=== PATIENT | female | born 1955 | race Caucasian/White ===

== ENCOUNTER 2016-09-17 23:01 | Inpatient (IN) ==
--- NOTE | 2016-09-18 02:09 | Emergency Department Note ---
Disposition Clinical Impression: Fracture of right hip Qualifiers: Encounter type: initial encounter Fracture type: closed Qualified Code(s): S72.001A - Fracture of unspecified part of neck of right femur, initial encounter for closed fracture Disposition: Admitted As Inpatient Condition: Fair Time of Disposition: 03:12 Fall HPI - General Chief Complaint: ED Fall Stated Complaint: Fall, R Leg/Arm Pain Time Seen by Provider: 09/18/16 01:28 Source: patient, family Mode of arrival: wheelchair Limitations: no limitations Nursing Notes Reviewed: Yes Vital Signs Reviewed: Yes - History of Present Illness HPI Narrative: 61-year-old female presents for evaluation of right elbow, and right lower extremity pain status post fall 2 days ago. The patient states that she slipped on a wet rock and landed on her right side. She complains of worsening pain ever since. She states she is unable to bear weight on the right lower extremity. She has taken her regularly prescribed oxycodone at home with only modest relief of symptoms. Pt Subjective Complaint: fall Onset (ago): day(s) (2 days ago) Fall From: standing Fall Witnessed: yes Place Fall Occurred: other (Outdoors) Loss of Consciousness: none Prolonged Down Time?: no Symptoms Prior to Fall: none Context: tripped/slipped Location of injury - extremities: Right: elbow, thigh, knee, ankle, foot Severity: severe Severity scale (1-10): 8 Associated symptoms (after fall): Reports: denies - Related Data Allergies Allergy/AdvReac Type Severity Reaction Status Date / Time morphine Allergy Hives Verified 09/18/16 01:47 Penicillins Allergy Swelling Verified 09/18/16 01:47 of Lip/Tongue/Throat All systems ED: reviewed and negative except as stated. Constitutional: Denies: fever, chills, weakness, weight change Eyes: Denies: eye pain, eye discharge, vision change ENT ED: Denies: ear pain, throat pain, dental pain, hearing loss, epistaxis, congestion, dysphagia Cardiovascular: Denies: chest pain, palpitations, dyspnea on exertion, edema, syncope Respiratory: Denies: cough, dyspnea, wheezes, hemoptysis, stridor Gastrointestinal: Denies: abdominal pain, nausea, vomiting, diarrhea, constipation, hematemesis, melena, hematochezia Genitourinary: Denies: dysuria, frequency, hematuria, discharge Musculoskeletal: Reports: as per HPI, arthralgia (Right elbow, right lower extremity pain). Denies: back pain, neck pain, myalgia Integumentary: Denies: rash, abrasion, lesions Neurological: Denies: headache, weakness, numbness, paresthesias, confusion, abnormal gait, vertigo Psychiatric: Denies: anxiety, depression, suicidal thoughts, homicidal thoughts , auditory hallucinations, visual hallucinations Endocrine: Denies: fatigue Hematological/Lymphatic: Denies: easy bleeding, easy bruising Allergic/Immunologic: Denies: facial swelling, urticaria Fall PMH - Past Medical History Medical history: Reports: COPD, hypertension Psychiatric history: Reports: anxiety, depression - Social History Smoking Status: Never smoker Alcohol use: Reports: none Drug use: Reports: none Physical Exam - General Limitations: no limitations General appearance: alert, in no apparent distress - Head Head exam: atraumatic, normocephalic, normal inspection - Eye Eye exam: Present: normal appearance, PERRL, EOMI. Absent: nystagmus - ENT ENT exam: mucous membranes moist - Neck Neck exam: Present: normal inspection, full ROM, trachea midline - Chest Chest inspection: Present: normal inspection, symmetric chest wall rise - Respiratory Respiratory exam: Present: normal lung sounds bilaterally. Absent: respiratory distress, wheezes, stridor, accessory muscle use, prolonged expiratory phase - Cardiovascular Cardiovascular exam: Present: regular rate, normal rhythm, normal heart sounds - Abdominal Exam Abdominal exam: Present: soft, Non-Tender, normal bowel sounds. Absent: tenderness, distention, guarding, rebound, rigidity - Expanded Upper Extremity Exam Shoulder exam: Present: normal inspection, full ROM Arm exam: Present: normal inspection, full ROM Elbow exam: Present: tenderness (Right elbow), abrasion (Right elbow). Absent: ecchymosis, crepitus, erythema, pain w/ pronation/supination, tenderness over radial head Forearm/Wrist exam: Present: normal inspection, full ROM Hand exam: Present: normal inspection, full ROM Neuromotor exam: Normal: wrist extension, thumb opposition, fingers 2-5 abduction Neurosensory exam: Normal: radial nerve, ulnar nerve, 2-point discrimination Hand tendon exam: Normal: flexor digitorum profundus (location), extensor tendon (location) Vascular exam: Normal: capillary refill, radial pulse, ulnar pulse - Expanded Lower Extremity Exam Hip/Pelvis exam: Present: normal inspection, full ROM Upper leg exam: Present: tenderness (Right thigh). Absent: abrasion, ecchymosis , deformity, erythema Knee exam: Present: tenderness (Knee tenderness to palpation diffusely), pain with valgus, pain with varus, knee extension intact. Absent: full ROM (Range of motion limited by pain, right knee), swelling, abrasion, laceration, ecchymosis, deformity, crepitus, erythema, laxity with valgus, laxity with varus Lower leg exam: Present: normal inspection, full ROM Ankle exam: Present: normal inspection, full ROM Foot/toe exam: Present: tenderness (Right rubber press tender to palpation diffusely). Absent: swelling, abrasion, laceration, ecchymosis, deformity, crepitus, dislocation, erythema, amputation, puncture wound, calcaneal tenderness, tenderness at base of 5th metatarsal Neurovascular/Tendon exam: Present: normal capillary refill. Absent: pulse deficit, motor deficit, sensory deficit, tendon deficit, extremity cold to touch Gait: not tested/not observed - Neurological Exam Neurological exam: Present: alert, oriented X3 - Psychiatric Psychiatric exam: Present: normal affect, normal mood - Skin Skin exam: Present: warm, dry, intact, normal color Course Course Narrative: I have discussed this patient's case with Dr. Soria. Dr. Soria has had a face to face evaluation with the patient. 0307: I spoke with Dr. Kelsey, rating specialist supervisor car installations. Dr. Kelsey states to admit the patient to the hospital service and keep her nothing by mouth should she be able to proceed to surgery tomorrow morning. 0318: I spoke with Dr. Mcclellan of the hospital service. Dr. Mcclellan has accepted the patient for admission under his service. Vital Signs Temperature 98.5 F 09/17/16 23:10 Pulse Rate 99 09/17/16 23:10 Respiratory Rate 20 09/17/16 23:10 Blood Pressure 150/94 09/17/16 23:10 O2 Sat by Pulse Oximetry 93 09/17/16 23:10 Temperature 98.5 F 09/17/16 23:10 Pulse Rate 99 09/17/16 23:10 Respiratory Rate 20 09/17/16 23:10 Blood Pressure 150/94 09/17/16 23:10 O2 Sat by Pulse Oximetry 93 09/17/16 23:10 Oxygen Delivery Oxygen Delivery Nasal Cannula Fall - Medical Records Medical records reviewed: Yes I reviewed the patient's medical records. - Radiology Data Radiology results reviewed: Yes I reviewed the patient's radiology results. Ankle X-Ray 09/18/16 01:56 IMPRESSION: No acute fracture or dislocation of the right ankle. Acute right subcapital femoral neck fracture. No right hip dislocation. The remainder of the right femur is intact. No acute fracture or dislocation of the right foot. No evidence of acute fracture or dislocation of the right knee. Small suprapatellar joint effusion. Mild tricompartmental degenerative changes most pronounced in the lateral compartment. No evidence of acute fracture of the pelvis. D/ / Edwar Barr MD / Edwar Barr MD Interpreting Provider: Edwar Barr MD Elbow X-Ray 09/18/16 01:56 IMPRESSION: Acute radial head fracture. D/ / Juan A Leon MD / Juan A Leon MD Interpreting Provider: Juan A Leon MD Femur X-Ray 09/18/16 01:56 IMPRESSION: No acute fracture or dislocation of the right ankle. Acute right subcapital femoral neck fracture. No right hip dislocation. The remainder of the right femur is intact. No acute fracture or dislocation of the right foot. No evidence of acute fracture or dislocation of the right knee. Small suprapatellar joint effusion. Mild tricompartmental degenerative changes most pronounced in the lateral compartment. No evidence of acute fracture of the pelvis. D/ / Edwar Barr MD / Edwar Barr MD Interpreting Provider: Edwar Barr MD Foot X-Ray 09/18/16 01:56 IMPRESSION: No acute fracture or dislocation of the right ankle. Acute right subcapital femoral neck fracture. No right hip dislocation. The remainder of the right femur is intact. No acute fracture or dislocation of the right foot. No evidence of acute fracture or dislocation of the right knee. Small suprapatellar joint effusion. Mild tricompartmental degenerative changes most pronounced in the lateral compartment. No evidence of acute fracture of the pelvis. D/ / Edwar Barr MD / Edwar Barr MD Interpreting Provider: Edwar Barr MD Knee X-Ray 09/18/16 01:56 IMPRESSION: No acute fracture or dislocation of the right ankle. Acute right subcapital femoral neck fracture. No right hip dislocation. The remainder of the right femur is intact. No acute fracture or dislocation of the right foot. No evidence of acute fracture or dislocation of the right knee. Small suprapatellar joint effusion. Mild tricompartmental degenerative changes most pronounced in the lateral compartment. No evidence of acute fracture of the pelvis. D/ / Edwar Barr MD / Edwar Barr MD Interpreting Provider: Edwar Barr MD Pelvis X-Ray 09/18/16 01:56
[2016-09-18] MEDS ORDERED: *HR* OxyCODONE/APAP 5/325 TABLET PO ONE (03:22)
[2016-09-18] MEDS ORDERED: Naloxone 0.4 MG/ML INJ IVP PRN (03:41)
[2016-09-18] MEDS ORDERED: clonazePAM 1 MG TABLET PO PRN (03:44)
[2016-09-18] MEDS ORDERED: Ringers Solution, Lactated 1,000 ML IVC SCH (03:45)
--- NOTE | 2016-09-18 03:48 | Internal Med History&Physical ---
Date of Encounter: 09/18/16 Time of Encounter: 03:46 Assessment and Plan (1) Fracture of right hip Current visit: Yes Status: Acute acute subcapital femoral neck fracture. NPO, IVF, pain control, Consult ortho for surgical fixation Qualifiers: Encounter type: initial encounter Fracture type: closed Qualified Code(s) : S72.001A - Fracture of unspecified part of neck of right femur, initial encounter for closed fracture (2) HTN (hypertension), benign Current visit: Yes Status: Acute continue med (3) Depression Current visit: Yes Status: Acute continue med Qualifiers: Qualified Code(s): F32.9 - Major depressive disorder, single episode, unspecified Internal Medicine - H&P: HPI Chief complaint: Fall with Right-sided arm and leg pain History of present illness: Ms. Sutton is a 61 year old female with a history of hypertension, depression, anxiety, COPD who presents with acute right elbow and right leg pain after a mechanical fall. The incident happened 2 days ago when she slipped on a wet rug causing her to tumble on the floor with impact to her right elbow and right hip region. She sustained traumatic injury with resultant pain that did not get better over the last 1 day. As a result she has been bedbound since the fall. Pain worse with movement of the right elbow and right leg. Pain improved with Percocet and rest. Screening XR with acute right subcapital femoral fracture. Past Med Surg Social Fam HX - Past Medical History Medical history: COPD, hypertension Psychiatric history: anxiety, depression - Social History Smoking Status: Never smoker Smokeless Tobacco Status: No Alcohol use: none Drug use: none - Additional Family History Additional family history: Hypertension Internal Medicine - H&P: Meds Allergies morphine Allergy (Verified 09/18/16 01:47) Hives Penicillins Allergy (Verified 09/18/16 01:47) Swelling of Lip/Tongue/Throat All Systems PM: A 10-system review of systems was performed and is negative for pertinent findings except as documented above in the HPI. Review of systems: ROS 14 point review of systems reviewed as best as possible given presentation. Pertinent positive or negative as per HPI or otherwise reviewed as negative - Constitutional Vitals: Temp Pulse Resp BP Pulse Ox 98.5 F 99 20 150/94 93 09/17/16 23:10 09/17/16 23:10 09/17/16 23:10 09/17/16 23:10 09/17/16 23:10 Exam: General - AAO x 3 Psych - Appropriate affect/speech. No agitation Eyes - ABEBE. Eye lids intact. No scleral icterus Heart - Sinus. RRR. S1 and S2 present. No added HS/murmurs appreciated. No elevated JVD appreciated. No calf swellings/erythema Lung - Adequate air entry b/l, No crackes/wheezes appreciated GI - Soft, non-tender. No hepatosplenomegaly/ascites. BS+ - No CVA/suprapubic tenderness or palpable bladder distension Skin - Intact. No rash/petechiae/ecchymosis. Warm extremities MSK - Pain on movement of right elbow and right leg. Swelling of right thigh. No sensory or vascular deficit.
[2016-09-18 04:03] LABS: Basophils % 0.3 %; Eosinophils # 0.1 K/mcL (0.0-0.6); Eosinophils % 0.5 %; Hematocrit 44.4 % (35.3-44.9); Hemoglobin 14.8 g/dL (11.5-15.4); Immature Granulocytes % 0.5 % (0-4); Lymphocytes % 9.5 %; Mean Corpuscular HGB Conc 33.3 g/dL (31.6-35.5); Mean Corpuscular Hemoglobin 28.9 pg (28.0-33.3); Mean Corpuscular Volume 86.7 fL (83.0-100.0); Mean Platelet Volume 9.4 fL (9.4-12.4); Monocytes # 0.6 K/mcL (0.0-1.3); Monocytes % 5.9 %; Neutrophils # 8.3 K/mcL (1.6-8.9); Platelet Count 164 K/mcL (140-400); Red Blood Count 5.12 M/mcL (3.82-4.97); Red Cell Distribution Width 13.4 % (11.5-14.5); Segmented Neutrophils % 83.3 %
[2016-09-18 04:08] LABS: INR 1.2; Prothrombin Time 12.7 Seconds (9.4-12.1)
[2016-09-18 04:11] LABS: Activated Partial Thrombo Time 24.7 Seconds (26.0-36.0)
[2016-09-18 04:14] LABS: Potassium 3.1 mEq/L (3.5-4.5)
[2016-09-18] MEDS ORDERED: 0.9 % Sodium Chloride 1,000 ML IVC ONE (04:58)
[2016-09-18] MEDS ORDERED: Potassium Chloride 20 MEQ, Lidocaine 1% 2 ML in D5% in Water 250 ML IVPB ONE (04:58)
[2016-09-18] MEDS ORDERED: *HR* Heparin 5,000 UNIT/ML VIAL SQ SCH (06:00)
[2016-09-18] MEDS ORDERED: *HR* HYDROmorphone (PF) 1 MG/ML SYRINGE IVP PRN ×2 (09:04→12:39)
[2016-09-18] MEDS ORDERED: Ipratropium/Albuterol Neb 3 ML IH PRN (09:10)
[2016-09-18] MEDS: Ringers Solution, Lactated 1,000 ML IVC SCH (09:25)
[2016-09-18] MEDS: *HR* OxyCODONE/APAP 5/325 TABLET PO PRN ×3 (09:25→20:20)
--- NOTE | 2016-09-18 11:25 | Orthopedic Consult Note ---
Date of Encounter: 09/18/16 Time of Encounter: 09:45 Assessment and Plan (1) Fracture of radial head, right, closed Current Visit: Yes Status: Acute Xrays performed in the ER showed acute nondisplaced radial head fracture. Will need to have posterior splint applied to the RUE to prevent patient from moving elbow. Will send someone from [facility] office to apply this today. Will need simple sling. Elevate and ice RUE. NWB to RUE. ROM of hand and shoulder as tolerated. Qualifiers: Qualified Code(s): S52.124A - Nondisplaced fracture of head of right radius, initial encounter for closed fracture (2) Fracture of right hip Current Visit: Yes Status: Acute Xrays of right hip show femoral neck fracture which will require surgical intervention. Plan for right hip hemiarthroplasty today by Dr. Kelsey pending cardiology clearance. I discussed the procedure as well as r/b/a with patient and family who expressed understanding and all questions answered. Consent obtained and placed in patient chart. Continue NPO in case surgery can still be performed today, otherwise adjust accordingly. Pain control per hospitalist. Will need to follow up with Ena Mosquera PA-C in [facility] office at [phone]. Office will fax up appt card to floor. Qualifiers: Encounter type: initial encounter Fracture type: closed Qualified Code(s) : S72.001A - Fracture of unspecified part of neck of right femur, initial encounter for closed fracture History of Present Illness Chief complaint: Right elbow and hip pain HPI: Ms. Sutton is a 61 year old female who presented to the ER yesterday for right hip and elbow pain. States 3 days ago she slipped on a wet surface at home and fell landing on right side of body. She has instant pain in right elbow and hip. The pain in elbow is localized to elbow with no radiation into wrist or shoulder, pain worse with motion of elbow. Denies any numbness to hand. Pain in hip radiates down the leg with any motion of the leg, constant. Pain currently rated 8/10 with pain medication. Denies any numbness to leg. She has been bed bound for the past 2 days but normally ambulates well. States she sometimes will ambulate with a cane due to chronic back pain. She does have COPD so has SOB from time to time. Denies chest pain, fevers currently. Past Med Surg Social Fam HX - Past Medical History Medical history: COPD, hypertension Psychiatric history: anxiety, depression - Social History Smoking Status: Never smoker Smokeless Tobacco Status: No Alcohol use: none Drug use: none Medications and Allergies Unable To Obtain [Unable to Obtain] 09/18/16 [History] Allergies morphine Allergy (Verified 09/18/16 01:47) Hives Penicillins Allergy (Verified 09/18/16 01:47) Swelling of Lip/Tongue/Throat All Systems Reviewed: A 10-system review of systems was performed and is negative for pertinent findings except as documented above in the HPI. - Constitutional Constitutional: as per HPI - Cardiovascular Cardiovascular: as per HPI - Respiratory Respiratory: as per HPI - Musculoskeletal Musculoskeletal: as per HPI Physical Exam - Constitutional Vitals: Temp Pulse Resp BP Pulse Ox 98.0 F 96 18 148/96 99 09/18/16 08:45 09/18/16 08:45 09/18/16 08:45 09/18/16 08:45 09/18/16 08:45 - Elbow right Pain modifiers elbow: with motion (Moderate tenderness to pain over radial head and with motion of elbow. Moderate ecchymosis and superficial abbrasions noted to right lateral elbow. Full ROM of shoulder and wrist/hand, limited ROM of elbow secondary to known fracture. Brisk cap refill, NV intact.) - Hip right Tenderness with palpation: anterior (No open wounds or lesions noted to right hip. RLE shortened and externally rotated. Tenderness to palpation of anterior hip. No knee pain, no calf pain, good dorsiflexion of foot. NV intact.) Results - Labs Result Diagrams: 09/18/16 03:55 09/18/16 03:55 Labs: Abnormal lab results RBC 5.12 M/mcL (3.82-4.97) H 09/18/16 03:55 PT 12.7 Seconds (9.4-12.1) H 09/18/16 03:55 APTT 24.7 Seconds (26.0-36.0) L 09/18/16 03:55 Sodium 133 mEq/L (136-145) L 09/18/16 03:55 Potassium 3.1 mEq/L (3.5-4.5) L 09/18/16 03:55 Chloride 86 mEq/L (98-109) L 09/18/16 03:55 Carbon Dioxide 34 mEq/L (19-29) H 09/18/16 03:55 Creatinine 1.19 mg/dL (0.57-1.11) H 09/18/16 03:55 Est GFR ( Amer) 56 (> 60) L 09/18/16 03:55 Est GFR (Non-Af Amer) 46 (> 60) L 09/18/16 03:55 Glucose 117 mg/dL (70-99) H 09/18/16 03:55 Calculated Osmolality 279 (280-300) L 09/18/16 03:55 All other labs normal. - Diagnostic results Elbow x-ray: report reviewed, image reviewed Hip x-ray: report reviewed, image reviewed Consult Discharge Plan - Plan Referrals: NONE,PCP [Primary Care Provider] - - Attending Attestation Case and plan of care discussed with supervising physician who was available for all aspects of care.
--- NOTE | 2016-09-18 11:44 | Cardiology Consult Note ---
<Kelly Larry - Last Filed: 09/18/16 12:44> Date of Encounter: 09/18/16 Time of Encounter: 10:30 Assessment and Plan (1) Preop cardiovascular exam Current Visit: Yes Status: Acute Per cardiology: -Preop cardiac clearance for right subcapital femoral neck fracture. -Patient with known vascular disease with left CEA. -Patient with intermittent atypical chest pain. -Had previous echo at outside facility. -Risk factors included HTN, significant smoking history, and vascular disease. -Patient is fairly sedentary at home. -No ECG to review -Echo pending and carotid duplex pending. -ECG ordered. -Will obtain records from previous echo. -Further cardiac recommendations pending testing. -Would recommend stress test due to chest pain. (2) Vascular disease Current Visit: Yes Status: Acute Per cardiology: -KNown vascular disease with left CEA. -Reports was recommended to have right CEA, but has not had yet. -Carotid duplex pending. -Can consider vascular surgery evalutaion. -Management per primary service. (3) HTN (hypertension), benign Current Visit: Yes Status: Acute Per cardiology: -KNown HTN. -ON maxzide. -BPs 120-140s systolic. Discussion w patient/family: The assessment and plan as outlined above was discussed with the patient and/or family members who expressed understanding and agreement. All questions were answered. Thank you for involving us in the care of your patient. Please call with any questions. Discussed and reviewed with . History of Present Illness Consult date: 09/18/16 Requesting physician: Dago Sigala Consult reason: vascular disease, hip fracture Chief complaint: injury to right side History of present illness: Ms. Sutton is a 61 year old female with a relevant past medical history of HTN , vascular disease, carotid stenosis with left CEA, reported right CEA recommended, but not completed, COPD, and smoking. Patient states she quit smoking 6 months ago. Prior to that she smoked 2 packs per day for 51 years. Patient presented after mechanical fall at home. Right subcapital femoral neck fracture noted. Cardiology has been consulted. Patient complains of intermittent chest pain. Patient states it occurs "occasioanlly." Patient states pain starts when she's at rest. Patient denies aggravating factors. Patient denies excertional chest pain, however states she does not do much at home. Patient states chest pain lessens with aspirin. Patient reports she had an echocardiogram 2 years ago in [facility]. Patient denies previous stress testing or cardiac cath. Patient states she has shortness of breath, however is at baseline. Patient reports increased fatigue. Patient states at home she occasionally walks with a cane. Patient states she normally cannot walk more than 50feet without having to rest. Patient states she does not have chest pain when walking. Patient states her shortness of breath is the reason she has not stop. Past Med Surg Social Fam HX - Past Medical History Attestation: Yes The following information was validated with the patient. Source: patient, obtained from family Medical history: COPD, hypertension Psychiatric history: anxiety, depression - Social History Smoking Status: Never smoker Smokeless Tobacco Status: No Alcohol use: none Drug use: none - Family History Mother History Unknown: Yes Medications and Allergies Unable To Obtain [Unable to Obtain] 09/18/16 [History] Allergies morphine Allergy (Verified 09/18/16 01:47) Hives Penicillins Allergy (Verified 09/18/16 01:47) Swelling of Lip/Tongue/Throat All Systems Review: A 10-system review of systems was performed and is negative for pertinent findings except as documented above in the HPI. - Cardiovascular Cardiovascular: as per HPI, chest pain at rest - Musculoskeletal Musculoskeletal: other (right leg pain) Physical Examination Vital Signs, Last 4 Hours Temp Pulse Resp BP Pulse Ox 09/18/16 08:45 98.0 F 96 18 148/96 99 09/18/16 07:59 16 127/81 General: Conversant, No Apparent Distress HEENT: Atraumatic, Normocephaly, Mucus Membranes Moist Neck: No JVD, Normal carotid pulses Cardiac: Reg Rate and Rhythm, Normal S1 and S2, No Murmur Lungs: Normal Breath Sounds, No Wheeze, Rales, Rhonchi Neuro: Alert and responsive, No focal deficits noted Abdomen: Soft, Non-Tender Skin: No rashes noted on visualized skin Musculoskeletal: No Chest Wall Tenderness, Other (Right foot outward turned. ) Extremities: No Clubbing, No Cyanosis, No Edema, Normal Pulses Results 09/18/16 03:55 09/18/16 03:55 Impressions Ankle X-Ray 09/18/16 01:56 IMPRESSION: No acute fracture or dislocation of the right ankle. Acute right subcapital femoral neck fracture. No right hip dislocation. The remainder of the right femur is intact. No acute fracture or dislocation of the right foot. No evidence of acute fracture or dislocation of the right knee. Small suprapatellar joint effusion. Mild tricompartmental degenerative changes most pronounced in the lateral compartment. No evidence of acute fracture of the pelvis. D/ / Edwar Barr MD / Edwar Barr MD Interpreting Provider: Edwar Barr MD Elbow X-Ray 09/18/16 01:56 IMPRESSION: Acute radial head fracture. D/ / Juan A Leon MD / Juan A Leon MD Interpreting Provider: Juan A Leon MD Femur X-Ray 09/18/16 01:56 IMPRESSION: No acute fracture or dislocation of the right ankle. Acute right subcapital femoral neck fracture. No right hip dislocation. The remainder of the right femur is intact. No acute fracture or dislocation of the right foot. No evidence of acute fracture or dislocation of the right knee. Small suprapatellar joint effusion. Mild tricompartmental degenerative changes most pronounced in the lateral compartment. No evidence of acute fracture of the pelvis. D/ / Edwar Barr MD / Edwar Barr MD Interpreting Provider: Edwar Barr MD Foot X-Ray 09/18/16 01:56 IMPRESSION: No acute fracture or dislocation of the right ankle. Acute right subcapital femoral neck fracture. No right hip dislocation. The remainder of the right femur is intact. No acute fracture or dislocation of the right foot. No evidence of acute fracture or dislocation of the right knee. Small suprapatellar joint effusion. Mild tricompartmental degenerative changes most pronounced in the lateral compartment. No evidence of acute fracture of the pelvis. D/ / Edwar Barr MD / Edwar Barr MD Interpreting Provider: Edwar Barr MD Knee X-Ray 09/18/16 01:56 IMPRESSION: No acute fracture or dislocation of the right ankle. Acute right subcapital femoral neck fracture. No right hip dislocation. The remainder of the right femur is intact. No acute fracture or dislocation of the right foot. No evidence of acute fracture or dislocation of the right knee. Small suprapatellar joint effusion. Mild tricompartmental degenerative changes most pronounced in the lateral compartment. No evidence of acute fracture of the pelvis. D/ / Edwar Barr MD / Edwar Barr MD Interpreting Provider: Edwar Barr MD Pelvis X-Ray 09/18/16 01:56 IMPRESSION: No acute fracture or dislocation of the right ankle. Acute right subcapital femoral neck fracture. No right hip dislocation. The remainder of the right femur is intact. No acute fracture or dislocation of the right foot. No evidence of acute fracture or dislocation of the right knee. Small suprapatellar joint effusion. Mild tricompartmental degenerative changes most pronounced in the lateral compartment. No evidence of acute fracture of the pelvis. D/ / Edwar Barr MD / Edwar Barr MD Interpreting Provider: Edwar Barr MD Active Medications Albuterol/Ipratropium (Duoneb) 3 ml IH [id number] PRN PRN Reason: Shortness Of Breath/Wheezing Stop: 03/20/17 09:11 Citalopram Hydrobromide (Celexa) 20 mg PO DAILY SON Stop: 03/20/17 09:01 Last Admin: 09/18/16 09:25 Dose: 20 mg Clonazepam (Klonopin) 1 mg PO DAILY PRN PRN Reason: Anxiety Stop: 03/20/17 09:01 Heparin Sodium (Porcine) (Heparin) 5,000 unit SQ Q12HR SON Stop: 03/20/17 06:01 Hydromorphone HCl (Dilaudid) 0.5 mg IVP Q4HR PRN PRN Reason: Severe Pain Stop: 03/20/17 09:05 Lactated Ringer's (Lactated Ringers) 1,000 mls @ 50 mls/hr IVC .Q20H SON Stop: 03/20/17 03:46 Last Admin: 09/18/16 09:25 Dose: 50 mls/hr Naloxone HCl (Narcan) 0.4 mg IVP Q2MIN PRN PRN Reason: Opioid Reversal Stop: 03/20/17 03:42 Oxycodone/Acetaminophen (Percocet 5/325) 1 each PO Q4HR PRN PRN Reason: Pain Stop: 03/20/17 03:44 Last Admin: 09/18/16 09:25 Dose: 1 each Triamterene/HCTZ (Maxzide) 1 each PO DAILY OSN Stop: 03/20/17 09:01 Laboratory Tests 09/18/16 09/18/16 03:55 03:55 Hgb 14.8 Potassium 3.1 L Creatinine 1.19 H - Imaging and Cardiology Echo: pending Consult Discharge Plan - Plan Referrals: NONE,PCP [Primary Care Provider] - <Catherine Aguilera - Last Filed: 09/18/16 15:21> Date of Encounter: 09/18/16 Assessment and Plan Discussion w patient/family: The assessment and plan as outlined above was discussed with the patient and/or family members who expressed understanding and agreement. All questions were answered. Thank you for involving us in the care of your patient. Please call with any questions. History of Present Illness History of present illness: Ms. Sutton is a 61 year old female All Systems Review: A 10-system review of systems was performed and is negative for pertinent findings except as documented above in the HPI. Physical Examination Vital Signs, Last 4 Hours Temp Pulse Resp BP Pulse Ox 09/18/16 12:12 97.7 F 72 17 137/90 96 Results 09/18/16 03:55 09/18/16 03:55 - Attending Attestation I examined this patient and my medical decision-making was reviewed with the Resident Physician. I agree with the documented findings, disposition and treatment plan. Ms. Sutton presents with a mechanical fall and has fractured her hip. Surgeons are asking for preoperative cardiovascular risk assessment. During history taking, she admits to chest pain which may be atypical. She does have known vascular disease, having undergone carotid endarterectomy in the past. She has a 50 year history of smoking and HTN. Given symptoms of chest pain and risk factors, recommend preoperative stress testing. An echo and carotids have been ordered by the primary team. Further recommendations to follow testing.
--- NOTE | 2016-09-18 14:34 | Electrocardiograph Report ---
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
--- NOTE | 2016-09-18 15:03 | Event Note ---
Addendum entered and electronically signed by Lydia Baldwin DO 09/18/16 16 :05: Will restart heparin SQ, ASA tonight. NPO at midnight for stress test. Will start statin. Original Note: <Lydia Baldwin - Last Filed: 09/18/16 16:01> Date of Encounter: 09/18/16 Time of Encounter: 10:00 S: Patient seen and examined. Right femoral neck fx on XR after mechanical fall at home 2 days ago, has been in bed since with son carrying her everywhere. Patient is a poor historian, but reports a PMH significant for B/L Carotid Stenosis with Left endartectomy, CVA, "bad heart" on ECHO 1 year ago, HTN, COPD on 2L Home O2 and tobacco use. She denies prior PR, LHC or stress test. She states she has SOB and intermittent chest pain today. Dr. Kelsey would like to operate on her today. O: General:WD/WN 61 y/o F who appears older than stated age in NAD EENT: EOMI Neck: trachea midline, scar on left neck Heart: RRR, heart sounds distant, no murmurs appreciated, pulses equal b/l Lungs: CTAB, diminished lung sounds, poor air movement GI: abdomen soft, non-tender, bowel sounds normoactive MSK: tenderness with palpation of right LE, no erythema or eccymosis on exam, leg internally rotated, neurovascularly intact A/P: 1. Right femoral neck fracture -Patient requires surgery, will need surgical clearance first. -Patient not clear for surgery today, pending cardiac testing and vascular surgery recommendations 2. Carotid Artery Stenosis -Carotid Duplex: Right 80-99% occlusion, 100% left ICA occlusion -Vasc Surgery consulted 3. HTN -Will consult cardio for cardiac clearance -ECHO -Nuc Med stress test tomorrow 4. COPD on home oxygen -Will get CXR <Dago Sigala - Last Filed: 09/18/16 17:26> Date of Encounter: 09/18/16 I examined this patient and my medical decision-making was reviewed with the Resident Physician on 09/18/16. I agree with the documented findings, disposition and treatment plan as described except to the extent set forth below. Ms. Sutton was admitted early this morning for acute R hip fracture. She is a very poor historian. Apparently has a hx of CVA and L CEA. Said she needed R carotid done but didn't have it. Relates some type of cardiac history but unsure. Spoke to family - she quit smoking about 7 months ago, no alcohol. No recent neuro symptoms. Carotid duplex L 100%, R 80-99% Plan Vascular consult Stress test Check duplex of legs - immobile at home for 2 days Hold on ortho surgery.
[2016-09-18] MEDS: Aspirin Enteric Coated 81 MG Tablet PO SCH (15:56)
--- NOTE | 2016-09-18 18:27 | Carotid Imaging Report ---
Carotid Duplex Patient Name:Genesis Sutton Order Number:[id number] Procedure Date:09/18/2016 Date:4Age:61 yrs Gender:Female Lt BP:137 / 90 mmHg Rt.BP:137 / 90 mmHgHeart Rate: Location:[facility] Room #: 3A55 Supervisor Lace Tearing:Larisa Martinez RDCS Referring MD:Dago Sigala DO matcher:None Reading MD:Triston Burgess MD , FACS Primary Indications:Carotid disease Risk Factors Yes/No Hypertension Hx of CVA Smoker Previous Impressions: Findings: Right ICA has a critical, 80-99% stenosis. Findings: Left ICA is occluded. Recommendations: Suggest clinical correlation and Futher evaluation is recommended. Test completed on 09/18/2016 at 1:45:00 pm. Critical findings reported to ALEYDA Hilliard by phone at 2:00:00 pm on 09/18/2016 by Larisa Martinez RDCS. Findings Carotid Duplex: Right: There is nonstenotic plaque in the right proximal common carotid artery. There is smooth heterogeneous plaque. There is nonstenotic plaque in the right mid common carotid artery. There is smooth heterogeneous plaque. There is nonstenotic plaque in the right distal common carotid artery. There is smooth heterogeneous plaque. There is 80-99% stenosis in the right bifurcation. There is calcified plaque. There is 80-99% stenosis in the right proximal internal carotid artery. There is calcified plaque. The right mid internal carotid artery has turbulent flow without plaque. The right eca has turbulent flow with plaque. There is highly irregular, heterogeneous calcified plaque. Left: There is nonstenotic plaque in the left proximal common carotid artery. There is irregular heterogeneous plaque. There is nonstenotic plaque in the left mid common carotid artery. There is nonstenotic plaque in the left distal common carotid artery. There is smooth heterogeneous plaque. There is nonstenotic plaque in the left bifurcation. There is highly irregular, heterogeneous calcified plaque. The left proximal internal carotid artery is occluded. The left mid internal carotid artery is occluded. The left distal internal carotid artery is occluded. There is nonstenotic plaque in the left eca. There is smooth heterogeneous plaque. Prior Study: No prior study available for comparison. Carotid Results Right PSV EDV Assessment Proximal CCA 57 24 Non Stenotic Plaque Mid CCA 65 28 Non Stenotic Plaque Distal CCA 67 28 Non Stenotic Plaque Bifurcation 239 110 80-99% stenosis Proximal ICA 251 108 80-99% stenosis Mid ICA 262 107 80-99% stenosis Distal ICA 75 43 Normal ECA 302 58 Non Stenotic Plaque Vertebral Artery 59 25 Antegrade Flow Left PSV EDV Assessment Proximal CCA 39 8 Non Stenotic Plaque Mid CCA 37 9 Non Stenotic Plaque Distal CCA 36 8 Non Stenotic Plaque Bifurcation 40 12 Non Stenotic Plaque Proximal ICA 0 0 occluded Mid ICA 0 0 occluded Distal ICA 0 0 occluded ECA 250 42 Non Stenotic Plaque Vertebral Artery 40 18 Antegrade Flow Ratio's Right ICA/CCA Ratio: 4.03 ICA/CCA Values: 262/65 Left ICA/CCA Ratio: 0.00 ICA/CCA Values: 0/37 Updated by Triston Burgess MD, FACS on 09/18/2016 6:20:08 PM Triston Burgess MD electronically signed on 09/18/2016 6:20:30 PM with status of Final
--- NOTE | 2016-09-18 19:28 | Vascular/Endovasc Consult Note ---
Date of Encounter: 09/18/16 Time of Encounter: 19:22 Assessment and Plan (1) Fracture of right hip Current Visit: Yes Status: Acute Patient is for right hip surgery per Dr. Kelsey. Qualifiers: Encounter type: initial encounter Fracture type: closed Qualified Code(s) : S72.001A - Fracture of unspecified part of neck of right femur, initial encounter for closed fracture (2) HTN (hypertension), benign Current Visit: Yes Status: Chronic Patient under chronic medical treatment for hypertension (3) Fracture of radial head, right, closed Current Visit: Yes Status: Acute Patient treated medically with splint immobilization Qualifiers: Encounter type: sequela Fracture alignment: nondisplaced Qualified Code(s ): S52.124S - Nondisplaced fracture of head of right radius, sequela (4) Vascular disease Current Visit: Yes Status: Chronic Patient is status post a left carotid endarterectomy 8 years ago. She has not had any obvious follow-up with duplex scan. It is unknown when the left internal carotid artery occluded. It is asymptomatic. At this point because the patient is incapacitated by her hip fracture and has no active neurologic symptoms related to her cerebral vascular disease I recommended that she proceed on with the right hip surgery as planned. I recommended that she return to see me as an outpatient in 4 weeks and she will then need to have an angiogram arranged for her carotid disease to further evaluate the right carotid stenosis. The left carotid occlusion is not amenable to any surgical intervention and should be treated medically with antiplatelet agents. The right carotid stenosis may require carotid endarterectomy. I reviewed these issues with the patient. All questions were answered. She understood the plan from a vascular surgery perspective. (5) COPD (chronic obstructive pulmonary disease) Current Visit: Yes Status: Chronic Clinically the patient has significant COPD. She uses oxygen at home on a when necessary basis. She also has diminished exercise tolerance with shortness of breath and dyspnea on review of her history and review of systems. Qualifiers: COPD type: unspecified COPD Qualified Code(s): J44.9 - Chronic obstructive pulmonary disease, unspecified - History of Present Illness Consult date: 09/18/16 Consult reason: Carotid artery disease Chief complaint: Right arm and right lower extremity pain History of present illness: Ms. Sutton is a 61 year old female Who was admitted early this morning after a fall and injury that occurred on her home premises about 2 days ago. The patient had slipped and fallen while trying to climb up a hill and struck the right side of her body. She had significant pain in her arm and leg. She was unable to bear weight. She is essentially been bedbound. She did not improve with home treatment and thus was taken to the emergency room and admitted. The patient was found to have an acute subcapital neck fracture on the right side. She also had a nondisplaced right radial head fracture. Because of these lesions that patient was recommended to undergo surgery for the right hip fracture which is scheduled for tomorrow. As part of her evaluation was found that she had significant carotid artery disease. She had suffered a stroke in 2008 that affected the right side of her body. She then underwent a left carotid endarterectomy by Dr. Prasanth Gonzalez at [facility]. The patient states she has not had any follow-up ultrasound testing since that operation 8 years ago. The hospitalist service ordered a duplex scan as part of that follow-up today. This study revealed occlusion of the left internal carotid artery. There is high -grade velocities measured in the right internal carotid artery with a peak systolic velocity of 262 cm/s with an end-diastolic velocity of 107 [address] the patient stenosis in the 80-99% range. The vertebral arteries are patent with antegrade flow bilaterally. The patient does not have any symptoms of active TIA or recent stroke. The patient denies any new neurologic issues since the stroke in 2008. The patient has significant risk factors for vascular disease. She has smoked 2 packs a day for approximatlly 50 years. She states she quit last year. She also has a history of hypertension. In addition she has a history of COPD requiring home use of oxygen at 2 L per nasal cannula when necessary, depression, and anxiety. Past Med Surg Social Fam HX - Past Medical History Medical history: COPD, hypertension Psychiatric history: anxiety, depression - Past Surgical History Surgical History: carotid endarterectomy (Left carotid endarterectomy in 2008 at [facility]) - Social History Smoking Status: Never smoker Smokeless Tobacco Status: No Alcohol use: none Drug use: none - Family History Mother History Unknown: Yes Medications and Allergies Unable To Obtain [Unable to Obtain] 09/18/16 [History] Allergies morphine Allergy (Verified 09/18/16 01:47) Hives Penicillins Allergy (Verified 09/18/16 01:47) Swelling of Lip/Tongue/Throat All Systems Review: A 10-system review of systems was performed and is negative for pertinent findings except as documented above in the HPI. Exam General: Present: Conversant, No Apparent Distress HEENT: Present: Atraumatic, Trachea midline, Other (Patient is wearing nasal cannula oxygen) Neck: Present: Other (Well healed left neck surgical scar). Absent: JVD, Left Carotid bruit, Right Carotid bruit, Midline deformity, Tracheal deviation Cardiac: Present: Reg Rate and Rhythm, No Murmur Lungs: Present: Decreased breath sounds, Other (The patient has soft wheezes and rhonchi) Neuro: Present: Alert and responsive, Cranial nerves grossly intact Abdomen: Present: Soft, Non-tender, Other (No abdominal bruits. Active bowel sounds.). Absent: Masses Vascular: Present: Normal capillary refill, Pulse, normal. Absent: Clubbing, Cyanosis Musculoskeletal: Present: Other (Right lower extremity is externally rotated and foreshortened as compared to the left lower extremity. There is mild edema of the foot and ankle. The right upper extremity is placed in a posterior splint.) Consult Discharge Plan - Plan Referrals: NONE,PCP [Primary Care Provider] - Triston Burgess MD [Partnered Physician] - (Follow-up with Dr. Burgess 4 weeks after discharge for carotid artery disease)
[2016-09-18] MEDS: *HR* Heparin 5,000 UNIT/ML VIAL SQ SCH (21:19)
[2016-09-19] MEDS: *HR* OxyCODONE/APAP 5/325 TABLET PO PRN ×4 (01:19→20:17)
[2016-09-19] MEDS: *HR* Heparin 5,000 UNIT/ML VIAL SQ SCH ×3 (05:23→20:18)
[2016-09-19] MEDS ORDERED: Regadenoson 0.4 MG/5 ML SYRINGE IVP ONE (06:56)
[2016-09-19 07:46] LABS: BUN/Creatinine Ratio 18 (6-26); Blood Urea Nitrogen 17 mg/dL (7-20); Calcium 9.2 mg/dL (8.6-10.8); Carbon Dioxide 37 mEq/L (19-29); Chloride 90 mEq/L (98-109); Glucose 100 mg/dL (70-99); Osmolality,Calculated 280 (280-300); Potassium 3.3 mEq/L (3.5-4.5); Sodium 134 mEq/L (136-145); eGFR For African Americans > 60 (> 60); eGFR For Non-African Americans 58 (> 60)
[2016-09-19 07:49] LABS: Chol/HDL Ratio 5.3 (0-4.9)
[2016-09-19 08:18] LABS: Basophils # 0.1 K/mcL (0.0-0.2); Basophils % 0.7 %; Eosinophils # 0.3 K/mcL (0.0-0.6); Eosinophils % 4.6 %; Hematocrit 39.2 % (35.3-44.9); Immature Granulocytes % 0.3 % (0-4); Lymphocytes # 1.4 K/mcL (0.6-4.6); Lymphocytes % 19.5 %; Mean Corpuscular HGB Conc 33.2 g/dL (31.6-35.5); Mean Corpuscular Hemoglobin 29.3 pg (28.0-33.3); Mean Corpuscular Volume 88.5 fL (83.0-100.0); Mean Platelet Volume 10.4 fL (9.4-12.4); Monocytes # 0.8 K/mcL (0.0-1.3); Monocytes % 11.5 %; Neutrophils # 4.7 K/mcL (1.6-8.9); Platelet Count 176 K/mcL (140-400); Red Blood Count 4.43 M/mcL (3.82-4.97); Red Cell Distribution Width 13.3 % (11.5-14.5); Segmented Neutrophils % 63.4 %
[2016-09-19] MEDS: Aspirin Enteric Coated 81 MG Tablet PO SCH (10:04)
[2016-09-19] MEDS: Ringers Solution, Lactated 1,000 ML IVC SCH (10:05)
--- NOTE | 2016-09-19 11:50 | Event Note ---
Date of Encounter: 09/19/16 Time of Encounter: 11:45 - Cardiology Event Note Patient unable to tolerate laying under camera today for non-exercise nuclear stress test due to severe discomfort and pain d/t fracture--study cancelled. TTE shows preserved LVEF, 65-70% with normal wall motion and no significant valvular dysfunction. No ischemic ECG changes. She does report intermittent chest discomfort which is atypical in nature and has been ongoing for "years." Reviewed patient with Dr. Aguilera. RCRI score: 0 which correlates to Class 1 risk for planned surgical procedure from cardiac standpoint. Further vascular recommendations per Dr. Burgess regarding severe carotid disease. No further recommendations from Cardiology standpoint, will sign-off. Please call with questions.
[2016-09-19] MEDS ORDERED: Ondansetron 4 MG/2 ML VIAL IVP PRN (12:26)
[2016-09-19] MEDS ORDERED: *HR* HYDROmorphone (PF) 1 MG/ML SYRINGE IVP PRN (12:27)
--- NOTE | 2016-09-19 15:06 | Orthopedics Progress Note ---
Date of Encounter: 09/19/16 Time of Encounter: 15:02 - Assessment and Plan (1) Fracture of right hip Current Visit: Yes Status: Acute Right hip arthroplasty planned for tomorrow Qualifiers: Encounter type: initial encounter Fracture type: closed Qualified Code(s) : S72.001A - Fracture of unspecified part of neck of right femur, initial encounter for closed fracture Subjective Principal diagnosis: Right hip displaced femoral neck fracture Interval history: Patient is comfortable in bed Cardiology and vascular notes were reviewed, both recommend patient undergo surgery at this time. Patient was placed on the schedule tomorrow morning for a right hip arthroplasty The procedure along with expected rehabilitation were discussed with patient and family. Objective Vital signs: Vital Signs Temp Pulse Resp BP Pulse Ox 09/19/16 11:52 97.6 F 78 18 126/86 94 09/19/16 06:41 98.3 F 86 17 161/72 94 09/19/16 00:46 98.4 F 91 17 180/97 96 09/18/16 19:54 98.1 F 92 17 139/90 92 09/18/16 15:12 98.0 F 90 17 138/95 96 Intake and Output 09/18/16 09/19/16 09/19/16 23:59 07:59 15:59 Intake Total 0 / 0 1000 / 1000 240 / 240 Output Total 250 / 250 725 / 725 150 / 150 Balance -250 / -250 275 / 275 90 / 90 Intake: IV Fluids 1000 / 1000 Lactated Ringers 1,000 ML 1000 / 1000 @ 50 mls/hr IVC .Q20H SON Rx#:[id number] Oral 0 / 0 0 / 0 240 / 240 Output: Catheter 250 / 250 725 / 725 150 / 150 Other: Meal Dinner Lunch Percent of Meal Consumed 20% 55% # Bowel Movements 0 0 Weight 72.2 kg Blood Glucose* 103 99 Patient Weight 09/19/16 23:59 Weight 72.2 kg Right lower extremity shortened external rotated Bilateral calves soft and nontender SCDs were temporary removed Grossly neurovascularly intact in both feet - Labs CBC & BMP: 09/19/16 07:19 09/19/16 07:19 Labs: Abnormal lab results PT 12.7 Seconds (9.4-12.1) H 09/18/16 03:55 APTT 24.7 Seconds (26.0-36.0) L 09/18/16 03:55 Sodium 134 mEq/L (136-145) L 09/19/16 07:19 Potassium 3.3 mEq/L (3.5-4.5) L 09/19/16 07:19 Chloride 90 mEq/L (98-109) L 09/19/16 07:19 Carbon Dioxide 37 mEq/L (19-29) H 09/19/16 07:19 Est GFR (Non-Af Amer) 58 (> 60) L 09/19/16 07:19 Glucose 100 mg/dL (70-99) H 09/19/16 07:19 POC Glucose 99 (58-89) H 09/19/16 11:55 LDL Cholesterol, Calc 121 mg/dL (0-99) H 09/19/16 07:19 HDL Cholesterol 34 mg/dL (40-59) L 09/19/16 07:19 Cholesterol/HDL Ratio 5.3 (0-4.9) H 09/19/16 07:19 Consult Discharge Plan - Plan Referrals: Ena Mosuqera PAC [Physician Tread Tuber Machine Operator] - 10/05/16 9:00 am Triston Burgess MD [Partnered Physician] - (Follow-up with Dr. Burgess 4 weeks after discharge for carotid artery disease)
--- NOTE | 2016-09-19 22:01 | Internal Med Progress Note ---
Date of Encounter: 09/19/16 Time of Encounter: 11:00 - Assessment and plan (1) HTN (hypertension), benign Current Visit: Yes Status: Chronic Assessment and plan: Appears controlled at this time. (2) Fracture of right hip Current Visit: Yes Status: Acute Assessment and plan: Plan is for surgery tomorrow. Qualifiers: Encounter type: subsequent encounter Fracture type: closed Qualified Code (s): S72.001D - Fracture of unspecified part of neck of right femur, subsequent encounter for closed fracture with routine healing (3) COPD (chronic obstructive pulmonary disease) Current Visit: Yes Status: Chronic Assessment and plan: Continue aerosols, oxygen. Not in exacerbation. Qualifiers: COPD type: unspecified COPD Qualified Code(s): J44.9 - Chronic obstructive pulmonary disease, unspecified (4) Depression Current Visit: Yes Status: Chronic Assessment and plan: Supportive care Qualifiers: Depression Type: unspecified Qualified Code(s): F32.9 - Major depressive disorder, single episode, unspecified (5) Vascular disease Current Visit: Yes Status: Chronic - Subjective Interval history: Ms. Sutton is currently admitted for acute hip fracture. She is moderate to high risk due to acute fracture and need for surgery. Ms Sutton is having pain in her hip. No fever or chills or other issues at this time. Surgery is planned for tomorrow. - Constitutional Vitals: Temp Pulse Resp BP Pulse Ox 98.5 F 96 18 165/95 91 09/19/16 20:04 09/19/16 20:04 09/19/16 20:04 09/19/16 20:04 09/19/16 20:04 General appearance: Present: A&O X 3, answers questions appropriately - Head Head exam: Present: normocephalic - Eye Eye exam: Present: conjuntiva pink - ENT ENT exam: Present: mucous membranes moist - Respiratory Respiratory exam: Present: CTAB. Absent: rhonchi, wheezes - Cardiovascular Cardiovascular exam: Present: RRR. Absent: tachycardia - GI/Abdominal GI/Abdominal exam: Present: soft. Absent: tenderness - Extremities Exam Extremities exam: Present: warm - Neurological Exam Neurological exam: Present: alert, oriented X3 - Psychiatric Psychiatric exam: Present: normal affect, normal mood Internal Medicine: Result - Labs CBC & Chem 7: 09/19/16 07:19 09/19/16 07:19 Labs: Short CBC 09/19/16 Range/Units 07:19 WBC 7.3 (4.3-11.1) K/mcL Hgb 13.0 D (11.5-15.4) g/dL Hct 39.2 (35.3-44.9) % Plt Count 176 (140-400) K/mcL Neutrophils # 4.7 (1.6-8.9) K/mcL BMP 09/19/16 07:19 Sodium 134 L Potassium 3.3 L Chloride 90 L Carbon Dioxide 37 H BUN 17 Creatinine 0.97 Glucose 100 H Calcium 9.2 - ABG Interpretation ABG results: PT/INR, D-dimer PT 12.7 Seconds (9.4-12.1) H 09/18/16 03:55 Consult Discharge Plan - Plan Referrals: Ena Mosquera PAC [Physician Credit Adjuster] - 10/05/16 9:00 am Triston Burgess MD [Partnered Physician] - (Follow-up with Dr. uBrgess 4 weeks after discharge for carotid artery disease)
[2016-09-20] MEDS: *HR* OxyCODONE/APAP 5/325 TABLET PO PRN ×2 (01:45→06:38)
[2016-09-20 04:33] LABS: Alanine Aminotransferase 19 Units/L (0-55); Albumin 3.1 g/dL (3.5-5.0); Albumin/Globulin Ratio 0.8 (1.1-2.2); Alkaline Phosphatase 59 Units/L (38-126); BUN/Creatinine Ratio 18 (6-26); Bilirubin,Total 0.5 mg/dL (0.2-1.2); Blood Urea Nitrogen 16 mg/dL (7-20); Calcium 8.8 mg/dL (8.6-10.8); Carbon Dioxide 33 mEq/L (19-29); Chloride 94 mEq/L (98-109); Globulin 3.8 g/dL (2.4-3.5); Glucose 85 mg/dL (70-99); Osmolality,Calculated 282 (280-300); Sodium 136 mEq/L (136-145); Total Protein 6.9 g/dL (6.0-8.3); eGFR For African Americans > 60 (> 60); eGFR For Non-African Americans > 60 (> 60)
[2016-09-20 04:44] LABS: Aspartate Amino Transferase 29 Units/L (5-34); Magnesium 2.8 mg/dL (1.6-2.6)
[2016-09-20] MEDS: Ringers Solution, Lactated 1,000 ML IVC SCH ×3 (08:43→20:55)
--- NOTE | 2016-09-20 10:01 | Internal Med Progress Note ---
<Lydia Baldwin - Last Filed: 09/20/16 13:41> Date of Encounter: 09/20/16 Time of Encounter: 09:59 - Assessment and plan (1) Fracture of femoral neck, right Current Visit: Yes Status: Acute Assessment and plan: Right femoral neck fracture secondary to a fall leg is neurovascularly intact Ortho consulted Plan: -Surgery today Qualifiers: Encounter type: initial encounter Fracture type: closed Qualified Code(s) : S72.001A - Fracture of unspecified part of neck of right femur, initial encounter for closed fracture (2) HTN (hypertension), benign Current Visit: Yes Status: Chronic Assessment and plan: Appears controlled at this time. (3) Fracture of radial head, right, closed Current Visit: Yes Status: Acute Assessment and plan: Splint in place, arm is neurovascularly intact Qualifiers: Encounter type: sequela Fracture alignment: nondisplaced Qualified Code(s ): S52.124S - Nondisplaced fracture of head of right radius, sequela (4) Vascular disease Current Visit: Yes Status: Chronic Assessment and plan: Continue ASA, statin (5) COPD (chronic obstructive pulmonary disease) Current Visit: Yes Status: Chronic Assessment and plan: Continue aerosols, oxygen. Not in exacerbation. Qualifiers: COPD type: unspecified COPD Qualified Code(s): J44.9 - Chronic obstructive pulmonary disease, unspecified (6) Depression Current Visit: Yes Status: Chronic Assessment and plan: Supportive care Qualifiers: Depression Type: unspecified Qualified Code(s): F32.9 - Major depressive disorder, single episode, unspecified - Subjective Interval history: Patient seen and examined. She states that she is having pain in her right leg. She denies any CP or SOB currently. - Constitutional Vitals: Temp Pulse Resp BP Pulse Ox 98.3 F 90 18 157/93 96 09/20/16 06:21 09/20/16 06:21 09/20/16 06:21 09/20/16 06:21 09/20/16 06:21 General appearance: Present: cooperative, A&O X 3, pleasant, answers questions appropriately - Head Head exam: Present: atraumatic, normocephalic - Respiratory Respiratory exam: Present: decreased breath sounds, CTAB. Absent: accessory muscle use, respiratory distress, rhonchi, wheezes - Cardiovascular Cardiovascular exam: Present: distant heart sounds, RRR, +S1, +S2. Absent: diastolic murmur, gallop, rubs, systolic murmur - GI/Abdominal GI/Abdominal exam: Present: normal bowel sounds, soft, no peritoneal signs. Absent: distended, tenderness - Extremities Exam Extremities exam: Present: normal capillary refill, warm, radial pulses palpable and symmetrical. Absent: calf tenderness, pedal edema Additional comments: Splint in place right upper arm, neurovascularly intact - Expanded Lower Extremities Exam Hip exam: Present: external rotation, swelling, tenderness. Absent: ecchymosis , erythema Neuro vascular tendon exam: Present: no vascular compromise. Absent: motor deficit, sensory deficit - Neurological Exam Neurological exam: Present: oriented X3, no focal deficits. Absent: motor sensory deficit, facial droop, speech deficit - Psychiatric Psychiatric exam: Present: normal affect, normal mood - Skin Skin exam: Present: dry, intact Internal Medicine: Result - Labs CBC & Chem 7: 09/19/16 07:19 09/20/16 03:09 Labs: BMP 09/20/16 03:09 Sodium 136 Potassium 4.0 Chloride 94 L Carbon Dioxide 33 H BUN 16 Creatinine 0.88 Glucose 85 Calcium 8.8 Liver Function 09/20/16 Range/Units 03:09 Total Bilirubin 0.5 (0.2-1.2) mg/dL AST 29 (5-34) Units/L ALT 19 (0-55) Units/L Alkaline Phosphatase 59 (38-126) Units/L Albumin 3.1 L (3.5-5.0) g/dL - ABG Interpretation ABG results: PT/INR, D-dimer PT 12.7 Seconds (9.4-12.1) H 09/18/16 03:55 Consult Discharge Plan - Plan Referrals: Ena Mosquera PAC [Physician Carpenter Assembler] - 10/05/16 9:00 am Triston Burgess MD [Partnered Physician] - (Follow-up with Dr. Burgess 4 weeks after discharge for carotid artery disease) <Dago Sigala - Last Filed: 09/20/16 17:45> Date of Encounter: 09/20/16 - Assessment and plan (1) HTN (hypertension), benign Current Visit: Yes Status: Chronic (2) COPD (chronic obstructive pulmonary disease) Current Visit: Yes Status: Chronic Qualifiers: COPD type: unspecified COPD Qualified Code(s): J44.9 - Chronic obstructive pulmonary disease, unspecified (3) Fracture of right hip Current Visit: Yes Status: Acute Qualifiers: Encounter type: subsequent encounter Fracture type: closed Qualified Code (s): S72.001D - Fracture of unspecified part of neck of right femur, subsequent encounter for closed fracture with routine healing (4) Vascular disease Current Visit: Yes Status: Chronic (5) Depression Current Visit: Yes Status: Chronic Qualifiers: Depression Type: unspecified Qualified Code(s): F32.9 - Major depressive disorder, single episode, unspecified - Constitutional Vitals: Temp Pulse Resp BP Pulse Ox 98.0 F 86 18 142/85 96 09/20/16 17:00 09/20/16 17:00 09/20/16 17:00 09/20/16 17:00 09/20/16 17:00 Internal Medicine: Result - Labs CBC & Chem 7: 09/19/16 07:19 09/20/16 03:09 Labs: BMP 09/20/16 03:09 Sodium 136 Potassium 4.0 Chloride 94 L Carbon Dioxide 33 H BUN 16 Creatinine 0.88 Glucose 85 Calcium 8.8 Liver Function 09/20/16 Range/Units 03:09 Total Bilirubin 0.5 (0.2-1.2) mg/dL AST 29 (5-34) Units/L ALT 19 (0-55) Units/L Alkaline Phosphatase 59 (38-126) Units/L Albumin 3.1 L (3.5-5.0) g/dL - ABG Interpretation ABG results: PT/INR, D-dimer PT 12.7 Seconds (9.4-12.1) H 09/18/16 03:55 - Impressions Impressions Hip X-Ray 09/20/16 00:00 IMPRESSION: Postoperative radiographs of the right hip with expected postsurgical appearance. D/ / Robert Ndiaye MD / Robert Ndiaye MD Interpreting Provider: Robert Ndiaye MD - Attending Attestation I examined this patient and my medical decision-making was reviewed with the Resident Physician on 09/20/16. I agree with the documented findings, disposition and treatment plan as described except to the extent set forth below. Ms. Sutton is currently admitted for R hip fracture. She is moderate to high risk due to potential for complications from hip as well as medical issues. Ms. Sutton is to have surgery today. She is hungry. No fever or chills. Pain OK at this time. Exam Alert. Comfortable Mucus membranes moist Heart reg No wheeze Abd soft I/P 1. R hip fracture for OR today 2. HTN Further diagnoses and plan as above.
[2016-09-20] MEDS ORDERED: *HR* Phenylephrine 10 MG/ML VIAL ONE (10:53)
[2016-09-20] MEDS ORDERED: *HR* FentaNYL (PF) 100 MCG/2 ML VIAL ONE ×2 (11:19→12:17)
[2016-09-20] MEDS ORDERED: *HR* Propofol 200 MG/20 ML VIAL IVP ONE (11:19)
[2016-09-20] MEDS ORDERED: *HR* Rocuronium Bromide 50 MG/5 ML VIAL ONE (11:19)
[2016-09-20] MEDS ORDERED: Lidocaine -MPF 4% 5 ML AMPUL ONE (11:19)
[2016-09-20] MEDS ORDERED: Lidocaine -MPF 2% 2 ML VIAL ONE (11:19)
[2016-09-20] MEDS ORDERED: Clindamycin 900 MG/50 ML 900 MG/50 ML IV.SOLN IVPB ONE (11:36)
--- NOTE | 2016-09-20 12:04 | Anesthesia Evaluation PreOp ---
Date of Encounter: 09/20/16 Time of Encounter: 11:20 - Past History Planned Operation: R hip hemiarthroplasty Cardiac History: HTN, Other (PVD) Pulmonary History: COPD HAND RUG CLEANER History: Other (carotid stenosis s/p CEA) Other Medical History: Denies Any Significant HX Anesthesia History: No Prior Anesthetic Complications, Past Anesthesia (L CEA) Alcohol Use: none Drug use: none Medications and Allergies Unable To Obtain [Unable to Obtain] 09/18/16 [History] Allergies morphine Allergy (Verified 09/18/16 01:47) Hives Penicillins Allergy (Verified 09/18/16 01:47) Swelling of Lip/Tongue/Throat - Meds/Allergy Pre-op Review Medications Reviewed: Yes Allergies Reviewed: Yes Beta Blockers on Current Med List: No Anesthesia Results - Labs 09/19/16 07:19 09/20/16 03:09 - Imaging EKG: report reviewed (SR) Additional studies: ECHO EF 65 Anesthesia Exam Vital Signs/O2 Sat, Most Current Temp Pulse Resp BP Pulse Ox 98.3 F 90 18 157/93 96 09/20/16 06:21 09/20/16 06:21 09/20/16 06:21 09/20/16 06:21 09/20/16 08:45 Height: 70kg Weight: 1.65m NPO (# of Hours): >8 - HEENT Pupil (Motor): Pupils equal, EOMI Mallampati: II Teeth: Edentulous Denture Type: Upper: Complete, Lower: Complete Oral Opening: Greater than 3 - HAND RUG CLEANER LOC: Oriented HAND RUG CLEANER Motor: Normal RUE, Normal LUE, Normal RLE, Normal LLE, Normal Face HAND RUG CLEANER Sensory: Normal: RUE, LUE, RLE, LLE, Face - Cardiac Rhythm: Regular - Pulmonary Breath Sounds: bilateral Clear Respiratory Effort: Symmetrical Anesthesia Assess/Plan ASA Score: 3 (HTN, COPD, PVD, catoid stenosis) Modified Tona Scale for Level of Consciousness: Cooperative, oriented, and tranquil Anesthetic Plan: General (r/b/a discussed consent obtained questions answered) Monitoring Plan: Standard Monitors Recovery Plan: PACU
--- NOTE | 2016-09-20 12:10 | Electrocardiograph Report ---
[address] [place] [address] Test Date: 2016-09-18 Pat Name: Genesis Sutton Department: 115 Room: 3A55 Gender: F Kindergartners Helper: : 1955 Requested By: Arvind Velez Order Number: [id number] Reading MD: Catherine Aguilera Measurements Intervals Eagle Rate: 89 P: 85 VT: 185 QRS: -85 QRSD: 71 T: 63 QT: 343 QTc: 390 Interpretive Statements SINUS RHYTHM INFERIOR MYOCARDIAL INFARCTION, PROBABLY OLD POOR R WAVE PROGRESSION Electronically Signed On 09-20-2016 12:08:57 EDT by Catherine Aguilera
[2016-09-20] MEDS ORDERED: Ondansetron 4 MG/2 ML VIAL IVP ONE (12:13)
[2016-09-20] MEDS ORDERED: *HR* Meperidine 25 MG/ML SYRINGE IVP PRN (12:13)
[2016-09-20] MEDS ORDERED: *HR* HYDROmorphone (PF) 1 MG/ML SYRINGE IVP PRN (12:13)
[2016-09-20] MEDS ORDERED: *HR* Promethazine 25 MG/ML VIAL IVP PRN (12:13)
[2016-09-20] MEDS ORDERED: Ringers Solution, Lactated 1,000 ML IVC SCH (12:15)
[2016-09-20] MEDS ORDERED: Ondansetron 4 MG/2 ML VIAL ONE (12:18)
[2016-09-20] MEDS ORDERED: Dexamethasone 4 MG/ML VIAL ONE (12:18)
[2016-09-20] MEDS ORDERED: Neostigmine Methylsulfate 3 MG/3 ML SYRINGE ONE (12:18)
--- NOTE | 2016-09-20 13:38 | Operative Note ---
Date of procedure: 09/20/16 Pre-op diagnosis: Right hip displaced femoral neck fracture Post-op diagnosis: same Procedure: Right hip marianna-arthroplasty Implants: [employer] echo hip replacement system Complications: None Anesthesia: RAULA Surgeon: Troy Kelsey Estimated blood loss (cc): 300 Specimen: Pathology Condition: stable Disposition: PACU Procedure in Detail: The patient received IV antibiotics in the holding area. She was brought to the operating room, sign in was performed. The patient underwent general anesthesia on the hospital bed. She was then transferred to the OR table in supine position. The patient was positioned in the left lateral decubitus position, supported by pelvic supports. Bony prominences of the left lower extremity were well padded. The right lower extremity was then prepped and draped in usual sterile fashion. A timeout was performed. The level of the greater trochanter was palpated, a 10-12 cm curvilinear posterior incision was made, followed by Bovie dissection. The hip abductor was sharply split in line with its fibers with a curved Matta scissors, incising the fascia over the gluteus chanda also. The Charnley retractors were then positioned, making sure all not to go too deeply, to protect the sciatic nerve. The bursa over the greater trochanter was excised with Bovie electrocautery. The left hip was then internally rotated, putting the short external rotators on stretch. These were taken down from the insertion point with the Bovie cautery, starting from less of a trochanter and going approximately to the femoral neck. The capsule along the posterior femoral neck and head was then T' ed, giving exposure to the fractured femoral head/neck. The head was then removed with a power corkscrew, and cutting the ligamentum teres. The head was measured and a size 46 mm diameter was chosen. The acetabulum was washed out of any bone fragments, and a trial head was placed giving a good fit. Next, the exposed fractured femoral neck was cleaned up with a rongeur, a corrugated box machine operator was then used to remove the lateral bone. The canal finder was then inserted. The lateralizer was next used. We then started broaching with a press-fit broaches from the [employer] echo tray. Starting with a press-fit 7, and moving up to a press-fit 8, keeping the appropriate anteversion. Continued broaching up to a size 11. The trial stem was well fixed with no toggling. The broach was then removed. The canal was irrigated out and suctioned. The [employer] Echo press-fit stem was then opened, using a lateralized 130 degree neck angle and a size 11 mm pressfit stem, the implant was tapped in place, making sure to keep the correct anteversion. Once well positioned, we trialed with a 46 mm diameter trial head, and a -3 mm neck length. Stability was checked along with leg length, it was felt that the leg length was equal. The leg lengths felt equal, the patient had good extension with mild tightness of the right lower extremity, is able to flex the hip, adduct, and internally rotated up to 75 degrees before the hip started subluxing out. The trial components removed. The acetabulum was copiously irrigated with normal saline once again making sure it was well cleaned out. Next the 46 mm bipolar head was opened with a -3 mm neck length. This assembled and tapped in place. The hip was reduced, and stability was checked once again. We had good stability. The capsule was then closed with 2-0 FiberWire figure of 8 sutures. The leg was placed on Matta stand, and the short external rotators were reattached to the bone using the FiberWire. The tensor fascia along with the gluteus fascia was closed with FiberWire [id number] sutures and a #1 Vicryl running suture proximally. Once again irrigating the wound with pulse lavage. The deep fat layer was closed with 0 Vicryl, subcutaneous tissues with 2-0 Vicryl simple sutures, and finally the skin was closed with neena. Sterile dressings were applied. A hip abduction wedge was in place between the patient' s legs. She was then rolled over into supine position and transferred back onto the hospital bed where she was extubated and taken to the recovery room in stable condition.
--- NOTE | 2016-09-20 13:41 | Venous Imaging Report ---
LE Venous Duplex Patient Name:Genesis Sutton Order Number:[id number] Procedure Date:09/18/2016 Date:4Age:61 yrs Gender:Female Location:[facility] Room #: 3A55 [employer] Assistant:Rosie Ramirezreinier Referring MD:Lydia Baldwin DO automotive designer:Estela Baker MD Reading MD:Triston Burgess MD , FACS Primary Indications:Femur fx, in bed for 2 days Secondary Indications: Risk Factors Yes/No Anticoagulants Yes Fall s/p 3 days Yes Impressions: Bilateral lower extremity: normal superficial and deep exam. Recommendations: After imaging the patient returned to their room. Test completed on 09/18/2016 at 9:04:00 pm. Findings Venous Duplex Results: Right: Venous imaging of the lower extremity reveals full patency and normal vessel compressibility of the right distal iliac, right common femoral, right popliteal, right posterior tibial, right peroneal, right great saphenous and right lesser saphenous. Doppler signals in the evaluated veins were normal. Compression of the right superficial femoral could not be tolerated. Flow was phasic and it did augment. Left: Venous imaging of the lower extremity reveals full patency and normal vessel compressibility of the left distal iliac, left common femoral, left superficial femoral, left popliteal, left posterior tibial, left peroneal, left great saphenous and left lesser saphenous. Doppler signals in the evaluated veins were normal. Prior Study: No prior study available for comparison. Lower Extremity Venous Duplex Side Vein Compress Spontaneous Flow Augment Diameter (cm) Depth (cm) Right Distal Iliac Normal Yes Phasic Yes Right Common Femoral Normal Yes Phasic Yes Right Superficial Femoral Not Tolerated Yes Phasic Yes Right Popliteal Normal Yes Phasic Yes Right Posterior Tibial Normal Yes Phasic Yes Right Peroneal Normal Yes Phasic Yes Right Great Saphenous Normal Yes Phasic Yes Right Lesser Saphenous Normal Yes Phasic Yes Left Distal Iliac Normal Yes Phasic Yes Left Common Femoral Normal Yes Phasic Yes Left Superficial Femoral Normal Yes Phasic Yes Left Popliteal Normal Yes Phasic Yes Left Posterior Tibial Normal Yes Phasic Yes Left Peroneal Normal Yes Phasic Yes Left Great Saphenous Normal Yes Phasic Yes Left Lesser Saphenous Normal Yes Phasic Yes Updated by Triston Burgess MD, FACS on 09/20/2016 1:36:25 PM Triston Burgess MD electronically signed on 09/20/2016 1:36:44 PM with status of Final
[2016-09-20] MEDS ORDERED: Ipratropium/Albuterol Neb 3 ML IH PRN (14:36)
[2016-09-20] MEDS ORDERED: Acetaminophen 325 MG TABLET PO PRN (14:36)
[2016-09-20] MEDS ORDERED: MOM Conc 10 ML UD.LIQ PO PRN (14:36)
[2016-09-20] MEDS ORDERED: Ondansetron 4 MG/2 ML VIAL IVP PRN (14:36)
[2016-09-20] MEDS ORDERED: Sennosides 8.6 MG TABLET PO PRN (14:36)
[2016-09-20] MEDS ORDERED: Naloxone 0.4 MG/ML INJ IVP PRN (14:36)
[2016-09-20] MEDS ORDERED: Temazepam 15 MG CAPSULE PO PRN (14:36)
[2016-09-20] MEDS: *HR* HYDROmorphone (PF) 1 MG/ML SYRINGE IVP PRN (15:07)
--- NOTE | 2016-09-20 15:19 | Anesthesia Evaluation Post Op ---
Date of Encounter: 09/20/16 Time of Encounter: 15:18 - Vital Signs Vital Signs: Vital Signs/O2 Sat, Most Current Temp Pulse Resp BP Pulse Ox 98.6 F 93 19 152/89 97 09/20/16 14:51 09/20/16 14:51 09/20/16 14:51 09/20/16 14:51 09/20/16 14:51 - Lungs Lungs: Clear Ascult./Percussion - Airway Airway: Non-obstructed - Cardiovascular Regular Rate - Mental Status Mental Status: Alert & Oriented, Answers Appropriately, Baseline Status - Nausea Vomiting Nausea Vomiting: Not Present - Hydration Hydration: Ice chips - Discharge PostOp Status: Transfer Patient to floor
[2016-09-20] MEDS: *HR* HYDROcodone/Acet 5/325 mg TABLET PO PRN ×2 (16:34→20:51)
[2016-09-20] MEDS: Clindamycin 900 MG/50 ML 900 MG/50 ML IV.SOLN IVPB SCH ×2 (17:33→23:48)
[2016-09-20] MEDS: Ascorbic Acid 500 MG TABLET PO SCH (17:34)
[2016-09-20] MEDS: *HR* OxyCODONE Immed Rel 5 MG TABLET PO PRN (23:56)
[2016-09-21] MEDS: *HR* HYDROcodone/Acet 5/325 mg TABLET PO PRN (04:17)
[2016-09-21 05:31] LABS: BUN/Creatinine Ratio 17 (6-26); Blood Urea Nitrogen 13 mg/dL (7-20); Calcium 8.1 mg/dL (8.6-10.8); Carbon Dioxide 31 mEq/L (19-29); Chloride 93 mEq/L (98-109); Glucose 113 mg/dL (70-99); Osmolality,Calculated 275 (280-300); Sodium 132 mEq/L (136-145); eGFR For African Americans > 60 (> 60); eGFR For Non-African Americans > 60 (> 60)
[2016-09-21 06:00] LABS: Potassium 3.7 mEq/L (3.5-4.5)
[2016-09-21 06:23] LABS: Basophils % 0.2 %; Hematocrit 28.8 % (35.3-44.9); Immature Granulocytes % 0.3 % (0-4); Lymphocytes # 0.8 K/mcL (0.6-4.6); Lymphocytes % 12.7 %; Mean Corpuscular HGB Conc 33.7 g/dL (31.6-35.5); Mean Corpuscular Volume 86.2 fL (83.0-100.0); Mean Platelet Volume 10.2 fL (9.4-12.4); Monocytes # 0.8 K/mcL (0.0-1.3); Monocytes % 12.1 %; Neutrophils # 4.8 K/mcL (1.6-8.9); Platelet Count 180 K/mcL (140-400); Red Blood Count 3.34 M/mcL (3.82-4.97); Red Cell Distribution Width 13.1 % (11.5-14.5); Segmented Neutrophils % 74.7 %
[2016-09-21 06:25] LABS: Hemoglobin 9.7 g/dL (11.5-15.4)
[2016-09-21] MEDS: *HR* HYDROmorphone (PF) 1 MG/ML SYRINGE IVP PRN ×4 (06:55→19:02)
[2016-09-21] MEDS: Ringers Solution, Lactated 1,000 ML IVC SCH ×2 (08:24→21:08)
[2016-09-21] MEDS: Aspirin Enteric Coated 81 MG Tablet PO SCH (08:25)
[2016-09-21] MEDS: Ascorbic Acid 500 MG TABLET PO SCH ×2 (08:25→18:27)
[2016-09-21] MEDS: Multivit/Ca/Min/Fe/FA 1 TAB TABLET PO SCH (08:25)
[2016-09-21] MEDS ORDERED: *HR* HYDROmorphone (PF) 1 MG/ML SYRINGE IVP ONE (09:50)
--- NOTE | 2016-09-21 10:12 | Internal Med Progress Note ---
<Lydia Baldwin - Last Filed: 09/21/16 11:43> Date of Encounter: 09/21/16 Time of Encounter: 10:10 - Assessment and plan (1) Fracture of femoral neck, right Current Visit: Yes Status: Acute Assessment and plan: Right femoral neck fracture secondary to a fall POD#1 Right hip marianna-arthroplasty with Dr. Kelsey leg is neurovascularly intact Pt has been up with PT today Plan: -PT/OT -Management per ortho Qualifiers: Encounter type: initial encounter Fracture type: closed Qualified Code(s) : S72.001A - Fracture of unspecified part of neck of right femur, initial encounter for closed fracture (2) Carotid artery stenosis, asymptomatic Current Visit: Yes Status: Acute Assessment and plan: Left ICA 100% occlusion, Right ICA 80-99% occlusion Patient is asymptomatic without neurologic sx Has been evaluated by vascular surgery who recommend outpatient f/u in 4 weeks for further evaluation Recommend treating Left occlusion medically with antiplatelet agents Plan: -Start plavix -Outpt f/u with vasc surgery in 4 weeks Qualifiers: Laterality: bilateral Qualified Code(s): I65.23 - Occlusion and stenosis of bilateral carotid arteries (3) Fracture of radial head, right, closed Current Visit: Yes Status: Acute Assessment and plan: Splint in place, arm is neurovascularly intact Qualifiers: Encounter type: sequela Fracture alignment: nondisplaced Qualified Code(s ): S52.124S - Nondisplaced fracture of head of right radius, sequela (4) HTN (hypertension), benign Current Visit: Yes Status: Chronic Assessment and plan: Appears controlled at this time. (5) Vascular disease Current Visit: Yes Status: Chronic Assessment and plan: Continue ASA, statin (6) COPD (chronic obstructive pulmonary disease) Current Visit: Yes Status: Chronic Assessment and plan: Continue aerosols, oxygen. Not in exacerbation. Qualifiers: COPD type: unspecified COPD Qualified Code(s): J44.9 - Chronic obstructive pulmonary disease, unspecified (7) Depression Current Visit: Yes Status: Chronic Assessment and plan: Supportive care Qualifiers: Depression Type: unspecified Qualified Code(s): F32.9 - Major depressive disorder, single episode, unspecified - Subjective Interval history: Patient seen and examined. She has been up with therapy this morning and states that she got very SOB and hot with it. She denies any CP, post-op pain is well controlled. - Constitutional Vitals: Temp Pulse Resp BP Pulse Ox 98.4 F 96 18 136/78 95 09/21/16 06:39 09/21/16 06:39 09/21/16 06:39 09/21/16 06:39 09/21/16 06:39 General appearance: Present: cooperative, A&O X 3, pleasant, no acute distress, answers questions appropriately - Head Head exam: Present: atraumatic, normocephalic - Respiratory Respiratory exam: Present: decreased breath sounds, CTAB, tachypnea. Absent: accessory muscle use, respiratory distress - Cardiovascular Cardiovascular exam: Present: RRR, +S1, +S2. Absent: diastolic murmur, gallop, rubs, systolic murmur - GI/Abdominal GI/Abdominal exam: Present: normal bowel sounds, soft, no peritoneal signs. Absent: distended, tenderness - Extremities Exam Extremities exam: Present: normal capillary refill, pedal edema, radial pulses palpable and symmetrical. Absent: calf tenderness Additional comments: Splint in place right UE, neurovascularly intact Dressing in place right lateral hip, clean and dry, no erythema. Mild edema of right ankle/foot. Neurovascularly intact - Neurological Exam Neurological exam: Present: oriented X3, no focal deficits. Absent: motor sensory deficit, facial droop, speech deficit - Psychiatric Psychiatric exam: Present: normal affect, normal mood - Skin Skin exam: Present: diaphoretic, warm. Absent: erythema, pallor, rash Internal Medicine: Result - Labs CBC & Chem 7: 09/21/16 04:44 09/21/16 04:44 Labs: Short CBC 09/21/16 Range/Units 04:44 WBC 6.4 (4.3-11.1) K/mcL Hgb 9.7 L D (11.5-15.4) g/dL Hct 28.8 L (35.3-44.9) % Plt Count 180 (140-400) K/mcL Neutrophils # 4.8 (1.6-8.9) K/mcL BMP 09/21/16 04:44 Sodium 132 L Potassium 3.7 Chloride 93 L Carbon Dioxide 31 H BUN 13 Creatinine 0.78 Glucose 113 H Calcium 8.1 L - ABG Interpretation ABG results: PT/INR, D-dimer PT 12.7 Seconds (9.4-12.1) H 09/18/16 03:55 - Impressions Impressions Hip X-Ray 09/20/16 00:00 IMPRESSION: Postoperative radiographs of the right hip with expected postsurgical appearance. D/ / Robert Ndiaye MD / Robert Ndiaye MD Interpreting Provider: Robert Ndiaye MD - VTE Documentation of Mechanical Device: Intermittent pneumatic compression device Consult Discharge Plan - Plan Referrals: Ena Mosquera PAC [Physician High School Band Teacher] - 10/05/16 9:00 am Triston Burgess MD [Partnered Physician] - (Follow-up with Dr. Burgess 4 weeks after discharge for carotid artery disease) <Dago Sigala - Last Filed: 09/21/16 17:42> Date of Encounter: 09/21/16 - Assessment and plan (1) Anemia Current Visit: Yes Status: Acute Qualifiers: Anemia type: other cause Other causes of anemia: acute posthemorrhagic Qualified Code(s): D62 - Acute posthemorrhagic anemia (2) HTN (hypertension), benign Current Visit: Yes Status: Chronic (3) COPD (chronic obstructive pulmonary disease) Current Visit: Yes Status: Chronic Qualifiers: COPD type: unspecified COPD Qualified Code(s): J44.9 - Chronic obstructive pulmonary disease, unspecified (4) Fracture of right hip Current Visit: Yes Status: Acute Qualifiers: Encounter type: subsequent encounter Fracture type: closed Qualified Code (s): S72.001D - Fracture of unspecified part of neck of right femur, subsequent encounter for closed fracture with routine healing (5) Vascular disease Current Visit: Yes Status: Chronic (6) Depression Current Visit: Yes Status: Chronic Qualifiers: Depression Type: unspecified Qualified Code(s): F32.9 - Major depressive disorder, single episode, unspecified - Constitutional Vitals: Temp Pulse Resp BP Pulse Ox 98.0 F 108 18 170/86 96 09/21/16 14:45 09/21/16 14:45 09/21/16 14:45 09/21/16 14:45 09/21/16 14:45 Internal Medicine: Result - Labs CBC & Chem 7: 09/21/16 12:25 09/21/16 04:44 Labs: Short CBC 09/21/16 09/21/16 Range/Units 04:44 12:25 WBC 6.4 (4.3-11.1) K/mcL Hgb 9.7 L D 10.7 L (11.5-15.4) g/dL Hct 28.8 L 31.8 L (35.3-44.9) % Plt Count 180 (140-400) K/mcL Neutrophils # 4.8 (1.6-8.9) K/mcL BMP 09/21/16 04:44 Sodium 132 L Potassium 3.7 Chloride 93 L Carbon Dioxide 31 H BUN 13 Creatinine 0.78 Glucose 113 H Calcium 8.1 L - ABG Interpretation ABG results: PT/INR, D-dimer PT 12.7 Seconds (9.4-12.1) H 09/18/16 03:55 - Attending Attestation I examined this patient and my medical decision-making was reviewed with the Resident Physician on 09/21/16. I agree with the documented findings, disposition and treatment plan as described except to the extent set forth below. Ms Sutton is currently admitted with fracture R hip s/p hemiarthroplasty. She remains moderate to high risk due to post op state and potential for worsening clinical status. Ms. Sutotn is doing better since surgery. Pain is better controlled. Having a lot of dyspnea with movement. No fever or chills. No cough. Working on d/c planning. Exam Alert. Comfortable Mucus membranes moist Heart reg No wheeze at this time No edema currently I/P 1. Fx R hip s/p hemiarthroplasty 2. R carotid stenosis Further diagnoses and plan as above.
[2016-09-21] MEDS: *HR* Enoxaparin 30 MG/0.3 ML SYRINGE SQ SCH ×2 (10:14→23:48)
--- NOTE | 2016-09-21 10:52 | Orthopedics Progress Note ---
Date of Encounter: 09/21/16 Time of Encounter: 08:15 - Assessment and Plan (1) Fracture of radial head, right, closed Current Visit: Yes Status: Acute Splint intact but padding coming away from hand. Nurse will reinforce with more padding. Elevate and ice RUE. Continue to wear sling. NWB to RUE. ROM of hand and shoulder as tolerated. Will follow up in [facility] office in 2 weeks. Qualifiers: Encounter type: sequela Fracture alignment: nondisplaced Qualified Code(s ): S52.124S - Nondisplaced fracture of head of right radius, sequela (2) Fracture of right hip Current Visit: Yes Status: Acute POD#1 s/p right hip hemiarthroplasty Continue with PT/OT. WBAT with assistance. Begin daily dry gauze dressings tomorrow. Continue DVT prophylaxis with lovenox 30mg SQ q 12hrs x 14 days Will follow up with Ena Mosquera PA-C in [facility] office on 10/05/16 at 9:00am. Qualifiers: Encounter type: subsequent encounter Fracture type: closed Qualified Code (s): S72.001D - Fracture of unspecified part of neck of right femur, subsequent encounter for closed fracture with routine healing Subjective Principal diagnosis: POD#1 s/p right hip hemiarthroplasty Interval history: Patient doing well today but having moderate pain in the right hip. Denies calf pain. Therapy has not worked with her as of yet today. Denies any concerns at this time. Objective Vital signs: Vital Signs Temp Pulse Resp BP Pulse Ox 09/21/16 10:44 98.7 F 108 18 155/90 96 09/21/16 06:39 98.4 F 96 18 136/78 95 09/21/16 04:21 98.3 F 96 18 161/91 92 09/21/16 03:45 95 09/21/16 00:00 98.1 F 87 18 154/84 95 09/20/16 19:39 98.1 F 86 18 121/75 92 09/20/16 18:00 98.0 F 96 18 152/91 93 09/20/16 17:00 98.0 F 86 18 142/85 96 09/20/16 16:01 98.0 F 96 18 152/91 93 09/20/16 15:28 97.8 F 95 17 135/78 95 09/20/16 14:51 98.6 F 93 19 152/89 97 09/20/16 14:23 97.7 F 89 16 156/89 94 09/20/16 14:13 97.7 F 89 12 154/95 95 09/20/16 14:03 92 9 155/95 93 09/20/16 13:53 92 12 148/94 94 09/20/16 13:43 99.1 F 107 18 129/89 93 Intake and Output 09/20/16 09/21/16 09/21/16 23:59 07:59 15:59 Intake Total 50 / 50 0 / 0 1000 / 1000 Output Total 0 / 0 1200 / 1200 700 / 700 Balance 50 / 50 -1200 / -1200 300 / 300 Intake: IV Fluids 50 / 50 1000 / 1000 Lactated Ringers 1,000 ML 1000 / 1000 @ 75 mls/hr IVC .[id number] [facility] Rx#:[id number] Cleocin Premix 900 MG/50 50 / 50 ML 900 mg In 50 ml @ 50 mls/hr IVPB Q8HR [facility] Rx#: [id number] Oral 0 / 0 0 / 0 0 / 0 Output: Catheter 0 / 0 1200 / 1200 700 / 700 Other: Meal Clear Percent of Meal Consumed 0% # Bowel Movements 0 0 Weight 70.3 kg Patient Weight 09/21/16 23:59 Weight 70.3 kg Incision: clean and dry (dressings c/d/i with no visible drainage or surrounding erythema) - Labs CBC & BMP: 09/21/16 04:44 09/21/16 04:44 Labs: Abnormal lab results RBC 3.34 M/mcL (3.82-4.97) L 09/21/16 04:44 Hgb 9.7 g/dL (11.5-15.4) L D 09/21/16 04:44 Hct 28.8 % (35.3-44.9) L 09/21/16 04:44 PT 12.7 Seconds (9.4-12.1) H 09/18/16 03:55 APTT 24.7 Seconds (26.0-36.0) L 09/18/16 03:55 Sodium 132 mEq/L (136-145) L 09/21/16 04:44 Chloride 93 mEq/L (98-109) L 09/21/16 04:44 Carbon Dioxide 31 mEq/L (19-29) H 09/21/16 04:44 Glucose 113 mg/dL (70-99) H 09/21/16 04:44 POC Glucose 97 (58-89) H 09/20/16 05:54 Calculated Osmolality 275 (280-300) L 09/21/16 04:44 Calcium 8.1 mg/dL (8.6-10.8) L 09/21/16 04:44 Magnesium 2.8 mg/dL (1.6-2.6) H 09/20/16 03:09 Albumin 3.1 g/dL (3.5-5.0) L 09/20/16 03:09 Globulin 3.8 g/dL (2.4-3.5) H 09/20/16 03:09 Albumin/Globulin Ratio 0.8 (1.1-2.2) L 09/20/16 03:09 LDL Cholesterol, Calc 121 mg/dL (0-99) H 09/19/16 07:19 HDL Cholesterol 34 mg/dL (40-59) L 09/19/16 07:19 Cholesterol/HDL Ratio 5.3 (0-4.9) H 09/19/16 07:19 - VTE Documentation of Mechanical Device: Intermittent pneumatic compression device Consult Discharge Plan - Plan Referrals: Ena Mosquera PAC [Physician Engineering Technician] - 10/05/16 9:00 am Triston Burgess MD [Partnered Physician] - (Follow-up with Dr. Burgess 4 weeks after discharge for carotid artery disease)
[2016-09-21 12:48] LABS: Hematocrit 31.8 % (35.3-44.9); Hemoglobin 10.7 g/dL (11.5-15.4)
[2016-09-21] MEDS: clonazePAM 1 MG TABLET PO PRN (21:08)
[2016-09-21] MEDS: *HR* OxyCODONE Immed Rel 5 MG TABLET PO PRN (21:08)
[2016-09-22 08:20] LABS: Hematocrit 29.7 % (35.3-44.9); Hemoglobin 9.9 g/dL (11.5-15.4); Mean Corpuscular HGB Conc 33.3 g/dL (31.6-35.5); Mean Corpuscular Hemoglobin 28.9 pg (28.0-33.3); Mean Corpuscular Volume 86.8 fL (83.0-100.0); Mean Platelet Volume 9.7 fL (9.4-12.4); Platelet Count 195 K/mcL (140-400); Red Blood Count 3.42 M/mcL (3.82-4.97); Red Cell Distribution Width 13.2 % (11.5-14.5)
[2016-09-22 08:32] LABS: BUN/Creatinine Ratio 17 (6-26); Blood Urea Nitrogen 13 mg/dL (7-20); Calcium 8.5 mg/dL (8.6-10.8); Carbon Dioxide 33 mEq/L (19-29); Chloride 94 mEq/L (98-109); Glucose 104 mg/dL (70-99); Osmolality,Calculated 284 (280-300); Sodium 137 mEq/L (136-145); eGFR For African Americans > 60 (> 60); eGFR For Non-African Americans > 60 (> 60)
[2016-09-22] MEDS: Ascorbic Acid 500 MG TABLET PO SCH ×2 (08:53→17:25)
[2016-09-22] MEDS: Multivit/Ca/Min/Fe/FA 1 TAB TABLET PO SCH (08:53)
[2016-09-22] MEDS: Aspirin Enteric Coated 81 MG Tablet PO SCH (08:53)
[2016-09-22] MEDS: Ringers Solution, Lactated 1,000 ML IVC SCH ×2 (08:54→22:31)
[2016-09-22 08:59] LABS: Potassium 3.3 mEq/L (3.5-4.5)
--- NOTE | 2016-09-22 09:23 | Internal Med Progress Note ---
<Lydia Baldwin - Last Filed: 09/22/16 14:22> Date of Encounter: 09/22/16 Time of Encounter: 09:21 - Assessment and plan (1) Fracture of femoral neck, right Current Visit: Yes Status: Acute Assessment and plan: Right femoral neck fracture secondary to a fall POD#2 Right hip marianna-arthroplasty with Dr. Kelsey leg is neurovascularly intact Pt has been up with PT today Plan: -PT/OT -Management per ortho Qualifiers: Encounter type: initial encounter Fracture type: closed Qualified Code(s) : S72.001A - Fracture of unspecified part of neck of right femur, initial encounter for closed fracture (2) Carotid artery stenosis, asymptomatic Current Visit: Yes Status: Acute Assessment and plan: Left ICA 100% occlusion, Right ICA 80-99% occlusion Patient is asymptomatic without neurologic sx Has been evaluated by vascular surgery who recommend outpatient f/u in 4 weeks for further evaluation Recommend treating Left occlusion medically with antiplatelet agents Plan: -Continue plavix -Outpt f/u with vasc surgery in 4 weeks Qualifiers: Laterality: bilateral Qualified Code(s): I65.23 - Occlusion and stenosis of bilateral carotid arteries (3) Fracture of radial head, right, closed Current Visit: Yes Status: Acute Assessment and plan: Splint in place, arm is neurovascularly intact Qualifiers: Encounter type: sequela Fracture alignment: nondisplaced Qualified Code(s ): S52.124S - Nondisplaced fracture of head of right radius, sequela (4) HTN (hypertension), benign Current Visit: Yes Status: Chronic Assessment and plan: Appears controlled at this time. (5) Vascular disease Current Visit: Yes Status: Chronic Assessment and plan: Continue ASA, statin (6) COPD (chronic obstructive pulmonary disease) Current Visit: Yes Status: Chronic Assessment and plan: Oxygen dependent, on 2L O2 at home, not currently in exacerbation Plan: -Continue aerosols -oxygen Qualifiers: COPD type: unspecified COPD Qualified Code(s): J44.9 - Chronic obstructive pulmonary disease, unspecified (7) Depression Current Visit: Yes Status: Chronic Assessment and plan: Continue celexa and klonipin Qualifiers: Depression Type: unspecified Qualified Code(s): F32.9 - Major depressive disorder, single episode, unspecified (8) Diarrhea Current Visit: Yes Status: Acute Assessment and plan: Patient notes diarrheax3 days with dark stool. Plan: -GI stool panel -hemocult -protonix -will hold lovenox Qualifiers: Diarrhea type: unspecified type Qualified Code(s): R19.7 - Diarrhea, unspecified - Subjective Interval history: Patient seen and examined. She continues to state she is SOB. She denies any CP , post-op pain is well controlled. She states that she has had diarrhea for 3 days, nausea and dark stool. - Constitutional Vitals: Temp Pulse Resp BP Pulse Ox 98.3 F 96 18 181/84 98 09/22/16 07:24 09/22/16 07:24 09/22/16 07:24 09/22/16 07:24 09/22/16 09:00 General appearance: Present: cooperative, A&O X 3, pleasant, no acute distress, answers questions appropriately - Head Head exam: Present: atraumatic, normocephalic - Neck Neck exam general surgery: Present: supple, trachea midline - Respiratory Respiratory exam: Present: decreased breath sounds. Absent: respiratory distress, tachypnea - Cardiovascular Cardiovascular exam: Present: RRR, +S1, +S2. Absent: diastolic murmur, gallop, rubs, systolic murmur - GI/Abdominal GI/Abdominal exam: Present: normal bowel sounds, soft, no peritoneal signs. Absent: distended, tenderness - Extremities Exam Extremities exam: Present: warm, radial pulses palpable and symmetrical. Absent : calf tenderness, cyanotic, pedal edema Additional comments: dressing in place on right hip, dry without surrounding erythema, neurovascularly intact Splint in place on right upper arm, neurovascularly intact - Neurological Exam Neurological exam: Present: oriented X3, no focal deficits. Absent: motor sensory deficit, pronater drift, facial droop, speech deficit - Skin Skin exam: Present: dry, normal color, warm. Absent: erythema Internal Medicine: Result - Labs CBC & Chem 7: 09/22/16 08:03 09/22/16 08:03 Labs: Short CBC 09/21/16 09/22/16 Range/Units 12:25 08:03 WBC 8.1 (4.3-11.1) K/mcL Hgb 10.7 L 9.9 L (11.5-15.4) g/dL Hct 31.8 L 29.7 L (35.3-44.9) % Plt Count 195 (140-400) K/mcL [facility] 09/22/16 08:03 Sodium 137 Potassium 3.3 L Chloride 94 L Carbon Dioxide 33 H BUN 13 Creatinine 0.76 Glucose 104 H Calcium 8.5 L - ABG Interpretation ABG results: PT/INR, D-dimer PT 12.7 Seconds (9.4-12.1) H 09/18/16 03:55 - VTE Documentation of Mechanical Device: Intermittent pneumatic compression device Consult Discharge Plan - Plan Referrals: Ena Mosquera PAC [Physician Manager Of International] - 10/05/16 9:00 am Triston Burgess MD [Partnered Physician] - (Follow-up with Dr. Burgess 4 weeks after discharge for carotid artery disease) <Pavel Peralta - Last Filed: 09/22/16 14:27> Date of Encounter: 09/22/16 - Constitutional Vitals: Temp Pulse Resp BP Pulse Ox 98.1 F 105 18 173/96 98 09/22/16 11:18 09/22/16 11:18 09/22/16 11:18 09/22/16 11:18 09/22/16 11:18 Internal Medicine: Result - Labs CBC & Chem 7: 09/22/16 08:03 09/22/16 08:03 Labs: Short CBC 09/22/16 Range/Units 08:03 WBC 8.1 (4.3-11.1) K/mcL Hgb 9.9 L (11.5-15.4) g/dL Hct 29.7 L (35.3-44.9) % Plt Count 195 (140-400) K/mcL [facility] 09/22/16 08:03 Sodium 137 Potassium 3.3 L Chloride 94 L Carbon Dioxide 33 H BUN 13 Creatinine 0.76 Glucose 104 H Calcium 8.5 L - ABG Interpretation ABG results: PT/INR, D-dimer PT 12.7 Seconds (9.4-12.1) H 09/18/16 03:55 - Attending Attestation acute blood loss anemia possibly from surgical procedure, consider possible GI bleed Protonix iv, monitor CBC hold lovenox send stool suties due to acute diarrhea I examined this patient and my medical decision-making was reviewed with the Resident Physician. I agree with the documented findings, disposition and treatment plan as described except to the extent set forth below.
[2016-09-22] MEDS: *HR* Enoxaparin 30 MG/0.3 ML SYRINGE SQ SCH (11:45)
[2016-09-22] MEDS ORDERED: Pantoprazole 40 MG VIAL IVP SCH (14:30)
[2016-09-22] MEDS: clonazePAM 1 MG TABLET PO PRN (15:27)
[2016-09-22] MEDS: *HR* HYDROcodone/Acet 5/325 mg TABLET PO PRN (15:29)
--- NOTE | 2016-09-22 16:19 | Orthopedics Progress Note ---
Date of Encounter: 09/22/16 Time of Encounter: 13:00 - Assessment and Plan (1) Fracture of radial head, right, closed Current Visit: Yes Status: Acute Splint intact to RUE. Elevate and ice RUE. Continue to wear sling. NWB to RUE. ROM of hand and shoulder as tolerated. Will follow up in [facility] office in 2 weeks. Qualifiers: Encounter type: sequela Fracture alignment: nondisplaced Qualified Code(s ): S52.124S - Nondisplaced fracture of head of right radius, sequela (2) Fracture of right hip Current Visit: Yes Status: Acute POD#2 s/p right hip hemiarthroplasty Continue with PT/OT. WBAT with assistance. Begin daily dry gauze dressings. Continue DVT prophylaxis with lovenox 30mg SQ q 12hrs x 14 days Will follow up with Ena Mosquera PA-C in [facility] office on 10/05/16 at 9:00am. Qualifiers: Encounter type: subsequent encounter Fracture type: closed Qualified Code (s): S72.001D - Fracture of unspecified part of neck of right femur, subsequent encounter for closed fracture with routine healing Subjective Principal diagnosis: POD#2 s/p right hip hemiarthroplasty Interval history: Patient doing well today but having moderate pain in the right hip. Denies calf pain. States she has been participating in therapy. Objective Vital signs: Vital Signs Temp Pulse Resp BP Pulse Ox 09/22/16 15:46 98.0 F 99 16 150/87 98 09/22/16 11:18 98.1 F 105 18 173/96 98 09/22/16 09:00 98 09/22/16 07:24 98.3 F 96 18 181/84 98 09/22/16 04:30 98.5 F 92 16 159/88 94 09/21/16 23:52 98.3 F 100 15 145/78 97 09/21/16 21:00 98.6 F 100 18 169/97 93 Intake and Output 09/22/16 09/22/16 09/22/16 07:59 15:59 23:59 Intake Total 0 / 0 913 / 913 Output Total 0 / 0 Balance 0 / 0 913 / 913 Intake: IV Fluids 913 / 913 Lactated Ringers 1,000 ML 913 / 913 @ 75 mls/hr IVC .[id number] [facility] [place] Rx#:[id number] Oral 0 / 0 Output: Urine 0 / 0 Other: Stool Size Moderate Moderate Stool Consistency liquid loose Stool Color Brown Brown Green Yellow # Bowel Movements 1 1 # Bowel Movement Diapers 1 Incision: clean and dry (dressings clean, dry and intact with no surrounding erythema, no calf tenderness) - Labs CBC & BMP: 09/22/16 08:03 09/22/16 08:03 Labs: Abnormal lab results RBC 3.42 M/mcL (3.82-4.97) L 09/22/16 08:03 Hgb 9.9 g/dL (11.5-15.4) L 09/22/16 08:03 Hct 29.7 % (35.3-44.9) L 09/22/16 08:03 PT 12.7 Seconds (9.4-12.1) H 09/18/16 03:55 APTT 24.7 Seconds (26.0-36.0) L 09/18/16 03:55 Potassium 3.3 mEq/L (3.5-4.5) L 09/22/16 08:03 Chloride 94 mEq/L (98-109) L 09/22/16 08:03 Carbon Dioxide 33 mEq/L (19-29) H 09/22/16 08:03 Glucose 104 mg/dL (70-99) H 09/22/16 08:03 POC Glucose 97 (58-89) H 09/20/16 05:54 Calcium 8.5 mg/dL (8.6-10.8) L 09/22/16 08:03 Magnesium 2.8 mg/dL (1.6-2.6) H 09/20/16 03:09 Albumin 3.1 g/dL (3.5-5.0) L 09/20/16 03:09 Globulin 3.8 g/dL (2.4-3.5) H 09/20/16 03:09 Albumin/Globulin Ratio 0.8 (1.1-2.2) L 09/20/16 03:09 LDL Cholesterol, Calc 121 mg/dL (0-99) H 09/19/16 07:19 HDL Cholesterol 34 mg/dL (40-59) L 09/19/16 07:19 Cholesterol/HDL Ratio 5.3 (0-4.9) H 09/19/16 07:19 - VTE Documentation of Mechanical Device: Intermittent pneumatic compression device Consult Discharge Plan - Plan Referrals: Ena Mosquera PAC [Physician Acquisition Consultant] - 10/05/16 9:00 am Triston Burgess MD [Partnered Physician] - (Follow-up with Dr. Burgess 4 weeks after discharge for carotid artery disease)
[2016-09-22 17:48] LABS: Adenovirus F 40/41 PCR Not detected (Not detect); Astrovirus PCR Not detected (Not detect); C.difficile Toxin A/B by PCR Not detected (Not detect); Campylobacter by PCR Not detected (Not detect); Cryptosporidium by PCR Not detected (Not detect); Cyclospora cayetanensis PCR Not detected (Not detect); E. coli O157 by PCR Not detected (Not detect); Entamoeba histolytica PCR Not detected (Not detect); Enteroaggregative E.coli(EAEC) Not detected (Not detect); Enteropathogenic E.coli(EPEC) Not detected (Not detect); Enterotoxigenic E.coli (ETEC) Not detected (Not detect); Giardia lamblia PCR Not detected (Not detect); Norovirus GI/GII PCR Not detected (Not detect); Plesiomonas shigelloides PCR Not detected (Not detect); Rotavirus A PCR Not detected (Not detect); Salmonella PCR Not detected (Not detect); Sapovirus PCR Not detected (Not detect); Shig/EnteroinvasiveE coli EIEC Not detected (Not detect); Shigalike tox-prod E coli STEC Not detected (Not detect); Vibrio PCR Not detected (Not detect); Vibrio cholerae PCR Not detected (Not detect); Yersinia enterocolitica PCR Not detected (Not detect)
[2016-09-23 05:21] LABS: Basophils # 0.1 K/mcL (0.0-0.2); Basophils % 0.6 %; Eosinophils # 0.2 K/mcL (0.0-0.6); Eosinophils % 2.3 %; Hematocrit 32.8 % (35.3-44.9); Hemoglobin 10.8 g/dL (11.5-15.4); Immature Granulocytes % 0.6 % (0-4); Lymphocytes # 1.6 K/mcL (0.6-4.6); Lymphocytes % 19.1 %; Mean Corpuscular HGB Conc 32.9 g/dL (31.6-35.5); Mean Corpuscular Hemoglobin 29.3 pg (28.0-33.3); Mean Corpuscular Volume 88.9 fL (83.0-100.0); Mean Platelet Volume 9.6 fL (9.4-12.4); Monocytes # 0.8 K/mcL (0.0-1.3); Monocytes % 9.4 %; Neutrophils # 5.7 K/mcL (1.6-8.9); Platelet Count 210 K/mcL (140-400); Red Blood Count 3.69 M/mcL (3.82-4.97); Red Cell Distribution Width 13.1 % (11.5-14.5)
[2016-09-23 05:42] LABS: Alanine Aminotransferase 26 Units/L (0-55); Albumin 2.7 g/dL (3.5-5.0); Albumin/Globulin Ratio 0.9 (1.1-2.2); Alkaline Phosphatase 56 Units/L (38-126); Aspartate Amino Transferase 46 Units/L (5-34); BUN/Creatinine Ratio 13 (6-26); Bilirubin,Total 0.4 mg/dL (0.2-1.2); Blood Urea Nitrogen 9 mg/dL (7-20); Calcium 8.7 mg/dL (8.6-10.8); Carbon Dioxide 34 mEq/L (19-29); Chloride 95 mEq/L (98-109); Globulin 2.9 g/dL (2.4-3.5); Glucose 90 mg/dL (70-99); Osmolality,Calculated 286 (280-300); Potassium 2.8 mEq/L (3.5-4.5); Sodium 139 mEq/L (136-145); Total Protein 5.6 g/dL (6.0-8.3); eGFR For African Americans > 60 (> 60); eGFR For Non-African Americans > 60 (> 60)
[2016-09-23] MEDS: Pantoprazole 40 MG VIAL IVP SCH ×2 (05:54→17:42)
[2016-09-23] MEDS: Ascorbic Acid 500 MG TABLET PO SCH ×2 (08:05→16:07)
[2016-09-23] MEDS: Multivit/Ca/Min/Fe/FA 1 TAB TABLET PO SCH (08:05)
[2016-09-23] MEDS: *HR* HYDROcodone/Acet 5/325 mg TABLET PO PRN ×3 (08:05→20:46)
[2016-09-23] MEDS: Aspirin Enteric Coated 81 MG Tablet PO SCH (08:05)
[2016-09-23] MEDS: clonazePAM 1 MG TABLET PO PRN (08:10)
--- NOTE | 2016-09-23 08:30 | Internal Med Progress Note ---
<Lydia Baldwin - Last Filed: 09/23/16 08:27> Date of Encounter: 09/23/16 Time of Encounter: 08:27 - Assessment and plan (1) Fracture of femoral neck, right Current Visit: Yes Status: Acute Assessment and plan: Right femoral neck fracture secondary to a fall POD#3 Right hip marianna-arthroplasty with Dr. Kelsey leg is neurovascularly intact Pt has been up with PT Complains of increased pain, felt some "popping" in the hip while she was being moved in bed this morning. Incision site clean, dry, intact, edges well approximated. Some neena may be slightly loose, but still in place. Serosanguinous fluid noted on gown, bedding, dressing that is dry. Wound may have had some oozing that seems to have stopped. No signs of infection. Plan: -PT/OT -Management per ortho -Redress incision this AM Qualifiers: Encounter type: initial encounter Fracture type: closed Qualified Code(s) : S72.001A - Fracture of unspecified part of neck of right femur, initial encounter for closed fracture (2) Carotid artery stenosis, asymptomatic Current Visit: Yes Status: Acute Assessment and plan: Left ICA 100% occlusion, Right ICA 80-99% occlusion Patient is asymptomatic without neurologic sx Has been evaluated by vascular surgery who recommend outpatient f/u in 4 weeks for further evaluation Recommend treating Left occlusion medically with antiplatelet agents Plan: -Plavix currently held with occult positive stool -Restart if able pending GI consult -Outpt f/u with vasc surgery in 4 weeks Qualifiers: Laterality: bilateral Qualified Code(s): I65.23 - Occlusion and stenosis of bilateral carotid arteries (3) Fracture of radial head, right, closed Current Visit: Yes Status: Acute Assessment and plan: Splint in place, arm is neurovascularly intact Qualifiers: Encounter type: sequela Fracture alignment: nondisplaced Qualified Code(s ): S52.124S - Nondisplaced fracture of head of right radius, sequela (4) Hypokalemia Current Visit: Yes Status: Acute Assessment and plan: K 2.8 this morning. Patient notes history of hypokalemia Suspect current loss secondary to diarrhea, but her home med of maxide could be causing her chronic loss. Will consider medication change prior to discharge or daily potassium supplementation. Plan: -40 meq potassium Iv -Will check magnesium and replace as well if needed (5) Occult blood positive stool Current Visit: Yes Status: Acute Assessment and plan: Patient notes diarrhea yesterday that was watery and dark She denies any diarrhea since yesterday. Hemocult positive, the rest of the GI panel is negative Hgb 10.8 this morning Lovenox and plavix held, patient on protonix IV BID GI was consulted, discussed the case with Dr. Daly who will evaluate as the patient requires anticoagulation for her carotid artery stenosis Plan: -GI consulted, appreciate their recommendations -Continue protonix IV BID -Continue to hold lovenox and plavix -Clear liquids (6) Vascular disease Current Visit: Yes Status: Chronic Assessment and plan: Continue ASA, statin (7) HTN (hypertension), benign Current Visit: Yes Status: Chronic Assessment and plan: She was more hypertensive late last evening, but has normalized this morning. Will continue to monitor (8) COPD (chronic obstructive pulmonary disease) Current Visit: Yes Status: Chronic Assessment and plan: Oxygen dependent, on 2L O2 at home, not currently in exacerbation Plan: -Continue aerosols -oxygen Qualifiers: COPD type: unspecified COPD Qualified Code(s): J44.9 - Chronic obstructive pulmonary disease, unspecified (9) Depression Current Visit: Yes Status: Chronic Assessment and plan: Continue celexa and klonipin Qualifiers: Depression Type: unspecified Qualified Code(s): F32.9 - Major depressive disorder, single episode, unspecified - Subjective Interval history: Patient seen and examined. She states she has not had any diarrhea or dark stool since yesterday. She has worse pain in her right hip, stating she thinks the neena popped out this morning when they were moving her back into bed. She did have some confusion overnight that has resolved this morning. - Constitutional Vitals: Temp Pulse Resp BP Pulse Ox 97.4 F L 74 19 161/92 99 09/23/16 03:51 09/23/16 03:51 09/23/16 03:51 09/23/16 03:51 09/23/16 03:51 General appearance: Present: cooperative, A&O X 3, pleasant, no acute distress, answers questions appropriately - Head Head exam: Present: atraumatic, normocephalic - Eye Eye exam: Present: EOMI, conjuntiva pink, sclera anicteric Pupils: Present: PERRL - Neck Neck exam general surgery: Present: supple, trachea midline - Respiratory Respiratory exam: Present: decreased breath sounds, rales (b/l bases) - Cardiovascular Cardiovascular exam: Present: RRR, +S1, +S2. Absent: diastolic murmur, gallop, rubs, systolic murmur - GI/Abdominal GI/Abdominal exam: Present: normal bowel sounds, soft, no peritoneal signs. Absent: distended, tenderness - Extremities Exam Extremities exam: Present: normal capillary refill, tenderness, warm, radial pulses palpable and symmetrical. Absent: pedal edema Additional comments: Incision examined on right hip, clean, dry, intact. Some neena may be slightly loose, but still holding in the skin, the incision is approximated. There is dried blood and dried serosanguinous fluid on the gown and bed. Neurovascularly intact, no erythema or signs of infection. Right arm in spling, neurovascularly intact, no edema. - Neurological Exam Neurological exam: Present: alert, oriented X3, no focal deficits. Absent: motor sensory deficit, facial droop, speech deficit - Psychiatric Psychiatric exam: Present: normal affect, normal mood - Skin Skin exam: Present: dry, normal color, warm. Absent: erythema Internal Medicine: Result - Labs CBC & Chem 7: 09/23/16 04:38 09/23/16 04:38 Labs: Short CBC 09/22/16 09/23/16 Range/Units 08:03 04:38 WBC 8.1 8.4 (4.3-11.1) K/mcL Hgb 9.9 L 10.8 L (11.5-15.4) g/dL Hct 29.7 L 32.8 L (35.3-44.9) % Plt Count 195 210 (140-400) K/mcL Neutrophils # 5.7 (1.6-8.9) K/mcL BMP 09/22/16 09/23/16 08:03 04:38 Sodium 137 139 Potassium 3.3 L 2.8 L Chloride 94 L 95 L Carbon Dioxide 33 H 34 H BUN 13 9 Creatinine 0.76 0.69 Glucose 104 H 90 Calcium 8.5 L 8.7 Liver Function 09/23/16 Range/Units 04:38 Total Bilirubin 0.4 (0.2-1.2) mg/dL AST 46 H (5-34) Units/L ALT 26 (0-55) Units/L Alkaline Phosphatase 56 (38-126) Units/L Albumin 2.7 L (3.5-5.0) g/dL - ABG Interpretation ABG results: PT/INR, D-dimer PT 12.7 Seconds (9.4-12.1) H 09/18/16 03:55 - VTE Documentation of Mechanical Device: Intermittent pneumatic compression device Consult Discharge Plan - Plan Referrals: Ena Mosquera PAC [Physician Rubber Press Operator] - 10/05/16 9:00 am Triston Burgess MD [Partnered Physician] - (Follow-up with Dr. Burgess 4 weeks after discharge for carotid artery disease) <Pavel Peralta - Last Filed: 09/23/16 09:50> Date of Encounter: 09/23/16 - Constitutional Vitals: Temp Pulse Resp BP Pulse Ox 98.3 F 91 14 159/93 98 09/23/16 07:00 09/23/16 07:00 09/23/16 07:00 09/23/16 07:00 09/23/16 07:00 Internal Medicine: Result - Labs CBC & Chem 7: 09/23/16 04:38 09/23/16 04:38 Labs: Short CBC 09/23/16 Range/Units 04:38 WBC 8.4 (4.3-11.1) K/mcL Hgb 10.8 L (11.5-15.4) g/dL Hct 32.8 L (35.3-44.9) % Plt Count 210 (140-400) K/mcL Neutrophils # 5.7 (1.6-8.9) K/mcL BMP 09/23/16 04:38 Sodium 139 Potassium 2.8 L Chloride 95 L Carbon Dioxide 34 H BUN 9 Creatinine 0.69 Glucose 90 Calcium 8.7 Liver Function 09/23/16 Range/Units 04:38 Total Bilirubin 0.4 (0.2-1.2) mg/dL AST 46 H (5-34) Units/L ALT 26 (0-55) Units/L Alkaline Phosphatase 56 (38-126) Units/L Albumin 2.7 L (3.5-5.0) g/dL - ABG Interpretation ABG results: PT/INR, D-dimer PT 12.7 Seconds (9.4-12.1) H 09/18/16 03:55 - Attending Attestation acute blood loss anemia possibly from surgical procedure , exacerbated by possible GI bleed likely upper Protonix iv BID, monitor CBC hold lovenox, plavix ( for carotid stenosis) , may hold ASA stool sample positive for occult blood GI consult I examined this patient and my medical decision-making was reviewed with the Resident Physician. I agree with the documented findings, disposition and treatment plan as described except to the extent set forth below.
[2016-09-23] MEDS ORDERED: Potassium Chloride 40 MEQ, Lidocaine 1% 2 ML in D5% in Water 500 ML IVPB ONE (09:06)
[2016-09-23 10:52] LABS: Magnesium 2.4 mg/dL (1.6-2.6)
--- NOTE | 2016-09-23 11:48 | Gastroenterology Consult Note ---
<Brandin Corral - Last Filed: 09/23/16 11:46> Date of Encounter: 09/23/16 Time of Encounter: 10:45 - Assessment and plan (1) Anemia Current Visit: Yes Status: Acute Assessment and plan: Hgb on admission was 14.8 and dropped to 9.7 on 09/21, today Hgb 10.8. Continue to monitor CBC and transfuse PRBC as needed. Plan for EGD tomorrow to r/o esophagitis, gastritis, duodenitis, PUD, MW tear, or AVM. Keep NPO at midnight. Qualifiers: Anemia type: other cause Other causes of anemia: acute posthemorrhagic Qualified Code(s): D62 - Acute posthemorrhagic anemia (2) Diarrhea Current Visit: Yes Status: Acute Assessment and plan: Pt with diarrhea for past 3 days. GI panel negative. FOBT positive. No BRBPR. Qualifiers: Diarrhea type: unspecified type Qualified Code(s): R19.7 - Diarrhea, unspecified (3) Occult blood positive stool Current Visit: Yes Status: Acute Assessment and plan: FOBT positive, no BRBPR. Plan for EGD tomorrow. NPO at midnight. (4) Fracture of femoral neck, right Current Visit: Yes Status: Acute Qualifiers: Encounter type: initial encounter Fracture type: closed Qualified Code(s) : S72.001A - Fracture of unspecified part of neck of right femur, initial encounter for closed fracture - Time Spent With Patient Total time spent is greater than 50% in coordination of care (as documented) at patient's floor/unit and/or counseling patient: GI History of Present Illness - Data of Consult Patient: new to practice Consult date: 09/23/16 Requesting Physician: Pavel Peralta - Consult Narrative Reason for consult: FOBT positive, anemia History of present illness: Ms. Sutton is a 61 year old female with PMHx of COPD, HTN, depression, and anxiety who presented with right elbow and right leg pain after a fall. XRays show acute nondisplaced radial head fracture and femoral neck fracture. Pt reported 3 day of diarrhea yesterday along with nausea and dark stool. FOBT was postive, GI panel negative. Hgb on admission was 14.8 and dropped to 9.7 on 09/21 , today Hgb 10.8. Lovenox and Plavix is currently being held. Procedures: No record NSAIDs: ASA Anticoagulation: Plavix Past Med Surg Social Fam HX - Past Medical History Medical history: COPD, hypertension Psychiatric history: anxiety, depression - Past Surgical History Surgical History: carotid endarterectomy (Left carotid endarterectomy in 2009 at [facility]) - Social History Smoking Status: Never smoker Smokeless Tobacco Status: No Alcohol use: none Drug use: none - Family History Mother History Unknown: Yes - Gastrointestinal Gastrointestinal: Present: as per HPI - Constitutional Constitutional: as per HPI - EENT Eyes: as per HPI Ears: Present: as per HPI Nose, mouth and throat: Present: as per HPI - Cardiovascular Cardiovascular ROS: Present: as per HPI - Respiratory Respiratory IM: Present: as per HPI - Genitourinary Genitourinary: Absent: change in color, Urinary frequency - Neurological ROS Neurological GI: Present: as per HPI - Hematologic/Lymphatic Hematologic/Lymphatic pediatric: Present: as per HPI - Musculoskeletal Musculoskeletal ROS GI: Present: as per HPI - Integumentary Integumentary GI: Present: as per HPI - Psychiatric ROS Psychiatric GI: Present: as per HPI - Endocrine Endocrine IM: Present: as per HPI - Constitutional Vitals: Temp Pulse Resp BP Pulse Ox 98.3 F 91 14 159/93 98 09/23/16 07:00 09/23/16 07:00 09/23/16 07:00 09/23/16 07:00 09/23/16 07:00 General appearance: Present: cooperative, A&O X 3, no acute distress, answers questions appropriately - Head Head exam: Present: atraumatic, normocephalic - Eye Eye exam: Present: normal appearance, sclera anicteric - ENT ENT exam: Present: mucous membranes moist - Neck Neck exam general surgery: Present: normal inspection, trachea midline - Respiratory Respiratory exam: Present: decreased breath sounds, CTAB. Absent: rales, rhonchi - Cardiovascular Cardiovascular exam: Present: RRR, +S1, +S2 - GI/Abdominal GI/Abdominal exam: Present: soft, no peritoneal signs. Absent: distended, firm , guarding, tenderness - Rectal Rectal exam: Present: deferred - Extremities Exam Extremities exam: Present: warm Additional comments: Right hip surgical incision - Neurological Exam Neurological exam: Present: no focal deficits - Psychiatric Psychiatric exam: Present: normal affect, normal mood - Skin Skin exam: Present: dry, intact, normal color, warm Results - Labs CBC & Chem 7: 09/23/16 04:38 09/23/16 04:38 Labs: Last Result Calcium 8.7 mg/dL (8.6-10.8) 09/23/16 04:38 Triglycerides 119 mg/dL (< 150) 09/19/16 07:19 Stool Occult Blood Positive (Negative) A 09/22/16 16:15 Entire Visit Hgb 10.8 g/dL (11.5-15.4) L 09/23/16 04:38 Hct 32.8 % (35.3-44.9) L 09/23/16 04:38 PT 12.7 Seconds (9.4-12.1) H 09/18/16 03:55 Total Bilirubin 0.4 mg/dL (0.2-1.2) 09/23/16 04:38 AST 46 Units/L (5-34) H 09/23/16 04:38 ALT 26 Units/L (0-55) 09/23/16 04:38 - ABG ABG results: PT/INR, D-dimer PT 12.7 Seconds (9.4-12.1) H 09/18/16 03:55 Consult Discharge Plan - Plan Referrals: Ena Mosquera PAC [Physician Apartment Maintenance Technician] - 10/05/16 9:00 am Triston Burgess MD [Partnered Physician] - (Follow-up with Dr. Burgess 4 weeks after discharge for carotid artery disease) <Elia Daly - Last Filed: 09/23/16 19:43> Date of Encounter: 09/23/16 Time of Encounter: 18:00 - Time Spent With Patient Total time spent is greater than 50% in coordination of care (as documented) at patient's floor/unit and/or counseling patient: GI History of Present Illness - Data of Consult Requesting Physician: Pavel Peralta - Consult Narrative History of present illness: Ms. Sutton is a 61 year old female - Constitutional Vitals: Temp Pulse Resp BP Pulse Ox 97.9 F 91 16 156/91 99 09/23/16 19:15 09/23/16 19:15 09/23/16 19:15 09/23/16 19:15 09/23/16 19:15 Results - Labs CBC & Chem 7: 09/23/16 04:38 09/23/16 04:38 Labs: Last Result Calcium 8.7 mg/dL (8.6-10.8) 09/23/16 04:38 Triglycerides 119 mg/dL (< 150) 09/19/16 07:19 Stool Occult Blood Positive (Negative) A 09/22/16 16:15 Entire Visit Hgb 10.8 g/dL (11.5-15.4) L 09/23/16 04:38 Hct 32.8 % (35.3-44.9) L 09/23/16 04:38 PT 12.7 Seconds (9.4-12.1) H 09/18/16 03:55 Total Bilirubin 0.4 mg/dL (0.2-1.2) 09/23/16 04:38 AST 46 Units/L (5-34) H 09/23/16 04:38 ALT 26 Units/L (0-55) 09/23/16 04:38 - ABG ABG results: PT/INR, D-dimer PT 12.7 Seconds (9.4-12.1) H 09/18/16 03:55 - Attending Attestation I examined this patient and my medical decision-making was reviewed with the Resident Physician. I agree with the documented findings, disposition and treatment plan as described except to the extent set forth below.
--- NOTE | 2016-09-23 16:42 | Orthopedics Progress Note ---
Date of Encounter: 09/23/16 Time of Encounter: 16:10 - Assessment and Plan (1) Fracture of radial head, right, closed Current Visit: Yes Status: Acute Splint intact to RUE. Elevate and ice RUE. Continue to wear sling. NWB to RUE. ROM of hand and shoulder as tolerated. Will follow up in [facility] office in 2 weeks. Qualifiers: Encounter type: sequela Fracture alignment: nondisplaced Qualified Code(s ): S52.124S - Nondisplaced fracture of head of right radius, sequela (2) Fracture of right hip Current Visit: Yes Status: Acute POD#3 s/p right hip hemiarthroplasty Drainage has decreased significantly compared to yesterday. No s/s infection. Continue with PT/OT. WBAT with assistance. Begin daily dry gauze dressings. Continue DVT prophylaxis with lovenox 30mg SQ q 12hrs x 14 days Will follow up with Ena Mosquera PA-C in [facility] office on 10/05/16 at 9:00am. Qualifiers: Encounter type: subsequent encounter Fracture type: closed Qualified Code (s): S72.001D - Fracture of unspecified part of neck of right femur, subsequent encounter for closed fracture with routine healing Subjective Principal diagnosis: POD#3 s/p right hip hemiarthroplasty Interval history: Patient doing well today but continues to have moderate pain in the right hip. Denies calf pain. States she has been participating in therapy and was up to bedside commode earlier today. Objective Vital signs: Vital Signs Temp Pulse Resp BP Pulse Ox 09/23/16 15:38 97.5 F L 91 18 147/85 98 09/23/16 11:00 97.1 F L 79 14 153/86 96 09/23/16 07:00 98.3 F 91 14 159/93 98 09/23/16 03:51 97.4 F L 74 19 161/92 99 09/22/16 23:52 97.9 F 90 17 155/92 98 09/22/16 20:15 98 09/22/16 19:00 97.5 F L 100 17 133/84 98 Intake and Output 09/23/16 09/23/16 09/23/16 07:59 15:59 23:59 Intake Total 0 / 0 522 / 522 Output Total 0 / 0 Balance 0 / 0 522 / 522 Intake: IV Fluids 522 KCl 40 MEQ Xylocaine 2 ML 522 In Dextrose 5% 500 ML @ 130.5 mls/hr IVPB ONCE ONE Rx#:[id number] Oral 0 / 0 Output: Urine 0 / 0 Other: Meal REFUSED Stool Size Large Stool Consistency liquid Stool Color Green # Voids 1 Weight 70.9 kg Patient Weight 09/23/16 23:59 Weight 70.9 kg Incision: draining (dressings had minimal serous drainage on them, no active drainage with palpation, no surrounding erythema, all neena intact. No calf tenderness to palpation. grossly NV intact) - Labs CBC & BMP: 09/23/16 04:38 09/23/16 04:38 Labs: Abnormal lab results RBC 3.69 M/mcL (3.82-4.97) L 09/23/16 04:38 Hgb 10.8 g/dL (11.5-15.4) L 09/23/16 04:38 Hct 32.8 % (35.3-44.9) L 09/23/16 04:38 PT 12.7 Seconds (9.4-12.1) H 09/18/16 03:55 APTT 24.7 Seconds (26.0-36.0) L 09/18/16 03:55 Potassium 2.8 mEq/L (3.5-4.5) L 09/23/16 04:38 Chloride 95 mEq/L (98-109) L 09/23/16 04:38 Carbon Dioxide 34 mEq/L (19-29) H 09/23/16 04:38 POC Glucose 97 (58-89) H 09/20/16 05:54 AST 46 Units/L (5-34) H 09/23/16 04:38 Serum Total Protein 5.6 g/dL (6.0-8.3) L 09/23/16 04:38 Albumin 2.7 g/dL (3.5-5.0) L 09/23/16 04:38 Albumin/Globulin Ratio 0.9 (1.1-2.2) L 09/23/16 04:38 LDL Cholesterol, Calc 121 mg/dL (0-99) H 09/19/16 07:19 HDL Cholesterol 34 mg/dL (40-59) L 09/19/16 07:19 Cholesterol/HDL Ratio 5.3 (0-4.9) H 09/19/16 07:19 Stool Occult Blood Positive (Negative) A 09/22/16 16:15 - VTE Documentation of Mechanical Device: Intermittent pneumatic compression device Consult Discharge Plan - Plan Referrals: Ena Mosquera PAC [Physician Exhibit Carpenter] - 10/05/16 9:00 am Triston Burgess MD [Partnered Physician] - (Follow-up with Dr. Burgess 4 weeks after discharge for carotid artery disease)
[2016-09-23] MEDS ORDERED: clonazePAM 0.5 MG TABLET PO PRN (21:16)
[2016-09-23] MEDS ORDERED: clonazePAM 1 MG TABLET PO PRN (21:30)
[2016-09-23] MEDS: Ringers Solution, Lactated 1,000 ML IVC SCH (23:50)
[2016-09-23] MEDS: *HR* OxyCODONE Immed Rel 5 MG TABLET PO PRN (23:51)
[2016-09-24] MEDS: Pantoprazole 40 MG VIAL IVP SCH (05:21)
[2016-09-24 05:45] LABS: Basophils # 0.1 K/mcL (0.0-0.2); Basophils % 0.7 %; Eosinophils # 0.4 K/mcL (0.0-0.6); Eosinophils % 5.4 %; Hematocrit 29.2 % (35.3-44.9); Hemoglobin 9.6 g/dL (11.5-15.4); Lymphocytes # 1.8 K/mcL (0.6-4.6); Lymphocytes % 26.2 %; Mean Corpuscular HGB Conc 32.9 g/dL (31.6-35.5); Mean Corpuscular Hemoglobin 28.4 pg (28.0-33.3); Mean Corpuscular Volume 86.4 fL (83.0-100.0); Mean Platelet Volume 9.7 fL (9.4-12.4); Monocytes # 0.6 K/mcL (0.0-1.3); Monocytes % 9.2 %; Platelet Count 253 K/mcL (140-400); Red Blood Count 3.38 M/mcL (3.82-4.97); Red Cell Distribution Width 13.2 % (11.5-14.5); Segmented Neutrophils % 57.5 %
[2016-09-24 05:54] LABS: BUN/Creatinine Ratio 10 (6-26); Blood Urea Nitrogen 7 mg/dL (7-20); Calcium 8.6 mg/dL (8.6-10.8); Carbon Dioxide 35 mEq/L (19-29); Chloride 95 mEq/L (98-109); Glucose 89 mg/dL (70-99); Magnesium 1.9 mg/dL (1.6-2.6); Osmolality,Calculated 281 (280-300); Potassium 3.1 mEq/L (3.5-4.5); Sodium 137 mEq/L (136-145); eGFR For African Americans > 60 (> 60); eGFR For Non-African Americans > 60 (> 60)
[2016-09-24 06:07] LABS: Platelet Estimate Normal (Normal)
[2016-09-24] MEDS ORDERED: *HR* FentaNYL (PF) 100 MCG/2 ML VIAL ONE (07:17)
[2016-09-24] MEDS ORDERED: *HR* Midazolam HCl 5 MG/5 ML VIAL IVP ONE (07:17)
--- NOTE | 2016-09-24 08:44 | Internal Med Progress Note ---
Date of Encounter: 09/24/16 Time of Encounter: 08:54 - Assessment and plan (1) Fracture of femoral neck, right Current Visit: Yes Status: Acute Assessment and plan: Right femoral neck fracture secondary to a fall POD#4 Right hip marianna-arthroplasty with Dr. Kelsey leg is neurovascularly intact Pt has been up with PT who recommends ECF/SNF skilled rehab. Pt pending medicaid , SW working on possible placement options which is difficult with pending medicaid status Plan: -PT/OT -Management per ortho Qualifiers: Encounter type: initial encounter Fracture type: closed Qualified Code(s) : S72.001A - Fracture of unspecified part of neck of right femur, initial encounter for closed fracture (2) Carotid artery stenosis, asymptomatic Current Visit: Yes Status: Acute Assessment and plan: Left ICA 100% occlusion, Right ICA 80-99% occlusion Patient is asymptomatic without neurologic sx Has been evaluated by vascular surgery who recommend outpatient f/u in 4 weeks for further evaluation Recommend treating Left occlusion medically with antiplatelet agents Plan: -Plavix currently held with occult positive stool -Restart if able pending GI recs -Outpt f/u with vasc surgery in 4 weeks Qualifiers: Laterality: bilateral Qualified Code(s): I65.23 - Occlusion and stenosis of bilateral carotid arteries (3) Fracture of radial head, right, closed Current Visit: Yes Status: Acute Assessment and plan: Splint in place, arm is neurovascularly intact Qualifiers: Encounter type: sequela Fracture alignment: nondisplaced Qualified Code(s ): S52.124S - Nondisplaced fracture of head of right radius, sequela (4) Hypokalemia Current Visit: Yes Status: Acute Assessment and plan: K 3.1 this morning. Patient notes history of hypokalemia Suspect current loss secondary to diarrhea, but her home med of maxide could be causing her chronic loss. Will consider medication change prior to discharge or daily potassium supplementation. (5) Occult blood positive stool Current Visit: Yes Status: Acute Assessment and plan: Patient notes diarrhea yesterday that was watery and dark She denies any diarrhea since yesterday. Hemocult positive, the rest of the GI panel is negative Hgb 9.6 this morning Lovenox and plavix held, patient on protonix IV BID GI was consulted- EGD today showed pyloric stenosis, otherwise normal. Plan for colonoscopy as outpt 4-6 weeks Plan: -GI consulted, appreciate their recommendations -Continue protonix IV BID -Continue to hold lovenox and plavix (6) Vascular disease Current Visit: Yes Status: Chronic Assessment and plan: Continue ASA, statin (7) HTN (hypertension), benign Current Visit: Yes Status: Chronic Assessment and plan: 160-170's systolic this morning Will continue to monitor (8) COPD (chronic obstructive pulmonary disease) Current Visit: Yes Status: Chronic Assessment and plan: Oxygen dependent, on 2L O2 at home, not currently in exacerbation Plan: -Continue aerosols -oxygen Qualifiers: COPD type: unspecified COPD Qualified Code(s): J44.9 - Chronic obstructive pulmonary disease, unspecified (9) Depression Current Visit: Yes Status: Chronic Assessment and plan: Continue celexa and klonipin Qualifiers: Depression Type: unspecified Qualified Code(s): F32.9 - Major depressive disorder, single episode, unspecified - Subjective Interval history: Patient seen and examined. She states she has not had any diarrhea or dark stool since wednesday. She has worse pain in her right hip. She states that she had her EGD already this morning and that they "did not find anything." She notes worse SOB this morning. Denies CP, abdominal pain. - Constitutional Vitals: Temp Pulse Resp BP Pulse Ox 97.9 F 86 16 176/102 92 09/24/16 07:20 09/24/16 07:47 09/24/16 07:47 09/24/16 07:47 09/24/16 07:47 General appearance: Present: cooperative, A&O X 3, pleasant, no acute distress, answers questions appropriately - Head Head exam: Present: atraumatic, normocephalic - Neck Neck exam general surgery: Present: supple, trachea midline - Respiratory Respiratory exam: Present: decreased breath sounds, CTAB. Absent: accessory muscle use, rales, rhonchi, wheezes - Cardiovascular Cardiovascular exam: Present: distant heart sounds, RRR, +S1, +S2. Absent: diastolic murmur, gallop, rubs, systolic murmur - GI/Abdominal GI/Abdominal exam: Present: normal bowel sounds, soft, no peritoneal signs. Absent: distended, tenderness - Extremities Exam Extremities exam: Present: normal capillary refill, warm, radial pulses palpable and symmetrical. Absent: calf tenderness, pedal edema Additional comments: Dressing in place over incision on right hip, no drainage or erythema noted. Neurovascularly intact Splint in place right UE, neurovascularly intact - Neurological Exam Neurological exam: Present: alert, oriented X3, no focal deficits. Absent: facial droop, speech deficit - Psychiatric Psychiatric exam: Present: normal affect, normal mood - Skin Skin exam: Present: dry, intact, warm Internal Medicine: Result - Labs CBC & Chem 7: 09/24/16 05:21 09/24/16 05:21 Labs: Short CBC 09/24/16 Range/Units 05:21 WBC 7.0 (4.3-11.1) K/mcL Hgb 9.6 L (11.5-15.4) g/dL Hct 29.2 L (35.3-44.9) % Plt Count 253 (140-400) K/mcL Neutrophils # 4.0 (1.6-8.9) K/mcL BMP 09/23/16 09/24/16 04:38 05:21 Sodium 139 137 Potassium 2.8 L 3.1 L Chloride 95 L 95 L Carbon Dioxide 34 H 35 H BUN 9 7 Creatinine 0.69 0.67 Glucose 90 89 Calcium 8.7 8.6 Liver Function 09/23/16 Range/Units 04:38 Total Bilirubin 0.4 (0.2-1.2) mg/dL AST 46 H (5-34) Units/L ALT 26 (0-55) Units/L Alkaline Phosphatase 56 (38-126) Units/L Albumin 2.7 L (3.5-5.0) g/dL - ABG Interpretation ABG results: PT/INR, D-dimer PT 12.7 Seconds (9.4-12.1) H 09/18/16 03:55 - VTE Documentation of Mechanical Device: Intermittent pneumatic compression device Consult Discharge Plan - Plan Referrals: Ena Mosquera PAC [Physician Prospecting Observer] - 10/05/16 9:00 am Triston Burgess MD [Partnered Physician] - (Follow-up with Dr. Burgess 4 weeks after discharge for carotid artery disease)
[2016-09-24] MEDS: *HR* HYDROcodone/Acet 5/325 mg TABLET PO PRN (09:36)
[2016-09-24] MEDS: Multivit/Ca/Min/Fe/FA 1 TAB TABLET PO SCH (09:36)
[2016-09-24] MEDS: Aspirin Enteric Coated 81 MG Tablet PO SCH (09:36)
[2016-09-24] MEDS: Ascorbic Acid 500 MG TABLET PO SCH (09:36)
[2016-09-24] MEDS: *HR* Enoxaparin 30 MG/0.3 ML SYRINGE SQ SCH (09:37)
[2016-09-24 10:53] VITALS: BP 150/69
--- NOTE | 2016-09-24 11:15 | Discharge Summary ---
<Lydia Baldwin - Last Filed: 09/24/16 16:05> Date of Encounter: 09/24/16 Time of Encounter: 11:06 - Discharge Diagnosis (1) Fracture of femoral neck, right Priority: Primary Status: Resolved Qualifiers: Encounter type: initial encounter Fracture type: closed Qualified Code(s) : S72.001A - Fracture of unspecified part of neck of right femur, initial encounter for closed fracture (2) Carotid artery stenosis, asymptomatic Priority: Primary Status: Acute Qualifiers: Laterality: bilateral Qualified Code(s): I65.23 - Occlusion and stenosis of bilateral carotid arteries (3) Fracture of radial head, right, closed Priority: Primary Status: Acute Qualifiers: Encounter type: sequela Fracture alignment: nondisplaced Qualified Code(s ): S52.124S - Nondisplaced fracture of head of right radius, sequela (4) Hypokalemia Priority: Primary Status: Resolved (5) Occult blood positive stool Priority: Primary Status: Resolved (6) Vascular disease Priority: Primary Status: Chronic (7) HTN (hypertension), benign Priority: Primary Status: Chronic (8) COPD (chronic obstructive pulmonary disease) Priority: Primary Status: Chronic Qualifiers: COPD type: unspecified COPD Qualified Code(s): J44.9 - Chronic obstructive pulmonary disease, unspecified (9) Depression Priority: Secondary Status: Chronic Qualifiers: Depression Type: unspecified Qualified Code(s): F32.9 - Major depressive disorder, single episode, unspecified - Discharge Medications Prescriptions: HYDROcodone/Acet 5/325 mg [[place] 5-325 mg] 1 tab PO Q4HR PRN #20 tab PRN Reason: Moderate Pain 4-6 OxyCODONE Immed Rel [Roxicodone 5 MG] 5 mg PO Q4HR PRN #20 tab PRN Reason: Severe Pain 7-10 clonazePAM [Klonopin] 1 mg PO TID PRN #15 tablet PRN Reason: Anxiety Clopidogrel [Plavix] 75 mg PO DAILY #30 tab Enoxaparin [Lovenox] 30 mg SQ DAILY #14 each Omeprazole [PriLOSEC] 40 mg PO DAILY #30 cap Home Medications: Acetaminophen [Tylenol] 650 mg PO Q4HR PRN tab 09/24/16 [Rx] Ascorbic Acid [Vitamin C] 500 mg PO BIDWM tab 09/24/16 [Rx] Aspirin Enteric Coated [Aspirin EC] 81 mg PO DAILY 09/24/16 [Rx] Atorvastatin [Lipitor] 40 mg PO HS tab 09/24/16 [Rx] Citalopram [CeleXA] 20 mg PO DAILY tab 09/24/16 [Rx] Clopidogrel [Plavix] 75 mg PO DAILY #30 tab 09/24/16 [Rx] Docusate [Colace] 100 mg PO BID 09/24/16 [Rx] Enoxaparin [Lovenox] 30 mg SQ DAILY #14 each 09/24/16 [Rx] Ferrous Sulfate 325 mg PO BIDWM tab 09/24/16 [Rx] HYDROcodone/Acet 5/325 mg [[place] 5-325 mg] 1 tab PO Q4HR PRN #20 tab 09/24/16 [ Rx] Multivit/Ca/Min/Fe/FA [Thera M Plus] 1 tab PO DAILY tab 09/24/16 [Rx] Omeprazole [PriLOSEC] 40 mg PO DAILY #30 cap 09/24/16 [Rx] OxyCODONE Immed Rel [Roxicodone 5 MG] 5 mg PO Q4HR PRN #20 tab 09/24/16 [Rx] Triamterene/HCTZ 75/50mg [Maxzide] 1 each PO DAILY tab 09/24/16 [Rx] clonazePAM [Klonopin] 1 mg PO TID PRN #15 tablet 09/24/16 [Rx] Allergies/Adverse Reactions: 3 Allergy/AdvReac Type Severity Reaction Status Date / Time morphine Allergy Hives Verified 09/18/16 01:47 Penicillins Allergy Swelling Verified 09/18/16 01:47 of Lip/Tongue/Throat Date of admission: 09/18/16 05:54 Primary care physician: PCP NONE Consults: 09/18/16 09:06 Consult to Cardiology [CONS] Routine Comment: Consulting Provider: Cardiology Lashell Reason for Consult: Vascular disease, hip fracture Time Notified: 09:07 Call Completed: Yes 09/20/16 14:36 Consult to Nurse Navigator [CONS] Routine Comment: ortho navigator Consult to Occupational Therapy [CONS] Routine Comment: Evaluate, develop and implement POC Reason for Consult: total hip replacement Consult to Physical Therapy [CONS] Routine Comment: Evaluate, develop and implement POC Reason for Consult: R hip hemiarthroplasty, R elbow radial head fx Consult to Truss Designer [CONS] Routine Reason for SW Consult: post op joint replacement RT Post Op Consult [CONS] Routine 09/23/16 08:05 Consult to Gastroenterology [CONS] Routine Consulting Provider: Mireya Lobo Reason for Consult: Hemmocult positive, decreased hgb Time Notified: 08:30 Call Completed: Yes Discharging clinician: Pavel Peralta Anticipated date of discharge: 09/24/16 - Patient Status Disposition: Transfer Inpatient Rehab Fac Condition: Good Functional capacity at discharge: uses cane/walker Overall status at discharge: patient is progressing back to baseline - Discharge Instructions Follow Up With: Ena Mosquera PAC [Physician Golf Course Assistant] - 10/05/16 9:00 am Triston Burgess MD [Partnered Physician] - 10/21/16 9:00 am (Follow-up with Dr. Burgess 4 weeks after discharge for carotid artery disease) Additional Instructions: Elevate and ice Right Upper Extremity. Continue to wear sling. Non-Weight Bearing to Right Upper Extremity. ROM of hand and shoulder as tolerated. Follow up in [facility] office in 2 weeks. Daily dry gauze dressings. Continue Pt/OT Continue DVT prophylaxis with lovenox 30mg SQ Daily x 14 days Will follow up with Ena Mosquera PA-C in [facility] office on 10/05/16 at 9:00am. Continue taking plavix and aspirin daily. Follow up with Dr. Burgess (vascular surgery) in 4 weeks. Take the omeprazole daily. Follow up with Dr. Daly outpatient for colonoscopy in 4 weeks Follow up with your PCP within 5 days. - Diet and Activity Activity: ambulate only with your walker, as per physical therapy Diet: low fat, low cholesterol Interval History: Patient doing well today. She notes continued SOB and pain in the right leg. Denies diarrhea or dark stool since wednesday. Denies CP, fevers, chills, abd pain. Hospital course: Ms. 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 She sustained traumatic injury with resultant pain that did not get better. She was bedbound after the fall. Pain was worse with movement of the right elbow and right leg. Pain improved with Percocet and rest. Screening XR with acute right subcapital femoral fracture. The patient was admitted with anticipated surgical intervention by ortho. She was evaluated by cardiology as she reported intermittent CP, increased SOB. She was unable to undergo stress test secondary to pain. ECHO shows preserved LVEF , 65-70% with normal wall motion and no significant valvular dysfunction. No ischemic ECG changes. Patient noted a history of carotid artery stenosis with left carotid endartectomy 10 years ago and that she required a surgery on the right that she never got and has had no follow up since. A carotid duplex revealed occlusion of the left internal carotid artery. There is high-grade velocities measured in the right internal carotid artery with a peak systolic velocity of 262 cm/s with an end-diastolic velocity of 107 [address] the patient stenosis in the 80-99% range. The vertebral arteries are patent with antegrade flow bilaterally. The patient does not have any symptoms of active TIA or recent stroke. The patient d/enies any new neurologic issues since the stroke in 2008. She was subsequently evaluated by vascular surgery, who recommended proceeding with surgery and following up in 4 weeks with vascular surgery. Dr. Kelsey performed a right hip marianna-arthroplasty . The patient was started on lovenox and plavix following surgery. She had an expected post-op drop in her hgb and was rehabing well. On 09/22 she reported dark diarrhea and had a further drop in her hgb. Lovenox and plavix were held and she was started on protonix BID. She was evalutated by GI who performed and EGD 09/24/16 that revealed pyloric stenosis with otherwise normal findings. She reported no further diarrhea and her hgb stabilized. She was restarted on lovenox and plavix. She was discharged to [facility] for rehab with a prescription for lovenox 30mg [id number] days, plavix and omeprazole. She has follow up with her PCP, Dr. Kelsey, Dr. Burgess and Dr. Daly. - Time Spent with Patient Total time spent providing and/or coordinating discharge services: - Constitutional Vitals: Temp Pulse Resp BP Pulse Ox 98.0 F 103 18 150/69 92 09/24/16 10:49 09/24/16 10:49 09/24/16 10:49 09/24/16 10:49 09/24/16 10:49 General appearance: Present: cooperative, A&O X 3, pleasant, no acute distress, answers questions appropriately - Head Head exam: Present: atraumatic, normocephalic - Eye Eye exam: Present: EOMI, PERRL, conjuntiva pink, sclera anicteric Pupils: Present: PERRL - Neck Neck exam general surgery: Present: supple, trachea midline - Respiratory Respiratory exam: Present: decreased breath sounds, CTAB. Absent: accessory muscle use, rales, rhonchi, wheezes - Cardiovascular Cardiovascular exam: Present: distant heart sounds, RRR, +S1, +S2. Absent: diastolic murmur, gallop, rubs, systolic murmur - GI/Abdominal GI/Abdominal exam: Present: normal bowel sounds, soft, no peritoneal signs. Absent: distended, tenderness - Extremities Exam Extremities exam: Present: warm, radial pulses palpable and symmetrical. Absent : calf tenderness, cyanotic, pedal edema Additional comments: splint in place right UE, neurovascularly intact. Dressing in place right hip, Clean, dry, no erythema, neurovascularly intact - Neurological Exam Neurological exam: Present: alert, oriented X3, no focal deficits. Absent: motor sensory deficit, facial droop, speech deficit - Psychiatric Psychiatric exam: Present: normal affect, normal mood - Skin Skin exam: Present: dry, intact, warm. Absent: erythema - VTE Documentation of Mechanical Device: Intermittent pneumatic compression device <Pavel Peralta - Last Filed: 09/25/16 14:06> Date of Encounter: 09/25/16 Date of admission: 09/18/16 05:54 Primary care physician: PCP NONE Consults: 09/18/16 09:06 Consult to Cardiology [CONS] Routine Comment: Consulting Provider: Cardiology Lashell Reason for Consult: Vascular disease, hip fracture Time Notified: 09:07 Call Completed: Yes 09/20/16 14:36 Consult to Nurse Navigator [CONS] Routine Comment: ortho navigator Consult to Occupational Therapy [CONS] Routine Comment: Evaluate, develop and implement POC Reason for Consult: total hip replacement Consult to Physical Therapy [CONS] Routine Comment: Evaluate, develop and implement POC Reason for Consult: R hip hemiarthroplasty, R elbow radial head fx Consult to Truss Designer [CONS] Routine Reason for SW Consult: post op joint replacement RT Post Op Consult [CONS] Routine 09/23/16 08:05 Consult to Gastroenterology [CONS] Routine Consulting Provider: Mireya Lobo Reason for Consult: Hemmocult positive, decreased hgb Time Notified: 08:30 Call Completed: Yes Hospital course: Ms. Sutton is a 61 year old female - Time Spent with Patient Total time spent providing and/or coordinating discharge services: - Constitutional Vitals: Temp Pulse Resp BP Pulse Ox 98.0 F 103 18 150/69 92 09/24/16 10:49 09/24/16 10:49 09/24/16 10:49 09/24/16 10:49 09/24/16 10:49 - Attending Attestation time spent on this discharge : 40 min acute blood loss anemia possibly from surgical procedure no active GI bleed discharge on Omeprazole colonoscopy as outpatient in 4-6 weeks per GI recommendations I examined this patient and my medical decision-making was reviewed with the Resident Physician. I agree with the documented findings, disposition and treatment plan as described except to the extent set forth below.
--- NOTE | 2016-09-24 11:28 | Physician Discharge Referral ---
<NicolasaLydiacathie Ingram - Last Filed: 09/24/16 11:25> [facility] Referral Info Provider in Charge after Transfer: PCP Institutional Level of Care: Skilled - Diagnosis (1) Fracture of femoral neck, right Priority: Primary Status: Resolved (2) Carotid artery stenosis, asymptomatic Priority: Primary Status: Acute (3) Fracture of radial head, right, closed Priority: Primary Status: Acute (4) Hypokalemia Priority: Primary Status: Resolved (5) Occult blood positive stool Priority: Primary Status: Resolved (6) Vascular disease Priority: Primary Status: Chronic (7) HTN (hypertension), benign Priority: Primary Status: Chronic (8) COPD (chronic obstructive pulmonary disease) Priority: Primary Status: Chronic (9) Depression Priority: Primary Status: Chronic - Transfer Medications Prescriptions: HYDROcodone/Acet 5/325 mg [[place] 5-325 mg] 1 tab PO Q4HR PRN #20 tab PRN Reason: Moderate Pain 4-6 OxyCODONE Immed Rel [Roxicodone 5 MG] 5 mg PO Q4HR PRN #20 tab PRN Reason: Severe Pain 7-10 clonazePAM [Klonopin] 1 mg PO TID PRN #15 tablet PRN Reason: Anxiety Clopidogrel [Plavix] 75 mg PO DAILY #30 tab Enoxaparin [Lovenox] 30 mg SQ DAILY #14 each Omeprazole [PriLOSEC] 40 mg PO DAILY #30 cap Home Medications: Acetaminophen [Tylenol] 650 mg PO Q4HR PRN tab 09/24/16 [Rx] Ascorbic Acid [Vitamin C] 500 mg PO BIDWM tab 09/24/16 [Rx] Aspirin Enteric Coated [Aspirin EC] 81 mg PO DAILY 09/24/16 [Rx] Atorvastatin [Lipitor] 40 mg PO HS tab 09/24/16 [Rx] Citalopram [CeleXA] 20 mg PO DAILY tab 09/24/16 [Rx] Clopidogrel [Plavix] 75 mg PO DAILY #30 tab 09/24/16 [Rx] Docusate [Colace] 100 mg PO BID 09/24/16 [Rx] Enoxaparin [Lovenox] 30 mg SQ DAILY #14 each 09/24/16 [Rx] Ferrous Sulfate 325 mg PO BIDWM tab 09/24/16 [Rx] HYDROcodone/Acet 5/325 mg [[place] 5-325 mg] 1 tab PO Q4HR PRN #20 tab 09/24/16 [ Rx] Multivit/Ca/Min/Fe/FA [Thera M Plus] 1 tab PO DAILY tab 09/24/16 [Rx] Omeprazole [PriLOSEC] 40 mg PO DAILY #30 cap 09/24/16 [Rx] OxyCODONE Immed Rel [Roxicodone 5 MG] 5 mg PO Q4HR PRN #20 tab 09/24/16 [Rx] Triamterene/HCTZ 75/50mg [Maxzide] 1 each PO DAILY tab 09/24/16 [Rx] clonazePAM [Klonopin] 1 mg PO TID PRN #15 tablet 09/24/16 [Rx] Allergies/Adverse Reactions: 3 Allergy/AdvReac Type Severity Reaction Status Date / Time morphine Allergy Hives Verified 09/18/16 01:47 Penicillins Allergy Swelling Verified 09/18/16 01:47 of Lip/Tongue/Throat - Respiratory Orders Oxygen / L per min (2) Smoking Cessation: Smoking cessation has been advised. For more information, call the [employer] Line at 8-648-TKQO-NOW. - Advance Directives Code Status: Full Code - Mobility Orders Ambulate ( with walker per PT) - Rehabiliation Orders Rehab Potential: Good Rehab Orders: ROM Exercises, Evaluation for Physical Therapy, Evaluation for Occupational Therapy - Diet Orders Cardiac CERTIFICATION: I certify that the transfer of the above named patient to an Extended Care Facility is necessary for the continuing treatment of the diagnosis listed. The above information is true and accurate reflection of patient's current condition. Confidential - Redisclosure prohibited without a patient's written consent. <Pavel Peralta - Last Filed: 09/24/16 14:31> - Respiratory Orders Smoking Cessation: Smoking cessation has been advised. For more information, call the [employer] Line at 3-110-TUYR-NOW. CERTIFICATION: I certify that the transfer of the above named patient to an Extended Care Facility is necessary for the continuing treatment of the diagnosis listed. The above information is true and accurate reflection of patient's current condition. Confidential - Redisclosure prohibited without a patient's written consent. I examined this patient and my medical decision-making was reviewed with the Resident Physician. I agree with the documented findings, disposition and treatment plan as described except to the extent set forth below.
== END 2016-09-24 13:49 | DRG 301 ==
LOC: EMEROO 23:01 → 3NENU 23:01 → SUATTDRO 09-18 05:54 → 3ANU 09-18 07:43
PROVIDERS: ADMIT Internal Medicine Hematology & Oncology; ATTEND Internal Medicine
PROC: ENDOORB (2016-09-24 07:30)